=== PATIENT | male | born 1995 | race African-American/Black ===

== ENCOUNTER 2016-08-26 00:15 | Emergency (ER) | payer OTHER ==
[~2016-08-26] VITALS: Ht 180.3 cm; Wt 59.0 kg
[~2016-08-26 00:15] MED LIST: INSU100V SQ; NOVORP2 SQ
[2016-08-26 00:20] VITALS: BP 123/87; PULSE 80; RESP 16; TEMP 97.7; O2SAT 100
[2016-08-26] MEDS ORDERED: SODIUM CHLOR 0.9% 1000 ML INJ 1,000 ML IV ONE ×2 (02:04→02:34)
--- NOTE | 2016-08-26 02:09 | PD ---
HPI Chief Complaint: GI Complaint Time Seen by Provider: 02:04 Travel History International Travel<30 days: No Contact w/Intl Traveler<30days: No Traveled to known affect area: No History of Present Illness HPI Patient is a 21-year-old male presents emergency department for evaluation of nausea vomiting and shortness of breath. Patient states over the past few days he's noticed been gradually getting sicker and tolerating last by mouth. Patient states he had a couple of TV dinners tonight after work and could not tolerate them and decided to come in and be seen. He is also noticed spikes in his blood sugars in excess of 600. Patient states he does have a history of DKA but it was a long time ago and he doesn't remember what it was like. He denies any abdominal pain but does endorse some mild shortness of breath. Nonbloody and non-bilious emesis and no diarrhea. No fevers. PFSH Past Medical History Autoimmune Disease: No Anxiety: No Depression: No Cancer: No Cardiovascular Problems: No Chest Pain: Yes Diabetes: Yes Diminished Hearing: No Endocrine: No Gastrointestinal Disorders: Yes Genitourinary: No Headaches: Yes Immune Disorder: No Musculoskeletal: No Neurologic: No Psychiatric: No Reproductive: No Respiratory: No Sickle Cell Disease: No Thyroid Disease: No Past Surgical History Appendectomy: No Cholecystectomy: No Social History Alcohol Use: No Tobacco Use: No Substance Use: No Allergies-Medications (Allergen,Severity, Reaction): Coded Allergies: No Known Allergies (Verified , 08/26/16) Reported Meds & Prescriptions Reported Meds & Active Scripts Active Zofran Odt (Ondansetron Odt) 4 Mg Tab 4 Mg SL Q6HR PRN Reported Novolin R Inj (Insulin Human Regular) 1,000 Unit/10 Ml Vial 0 SQ DIRECTED Sliding Scale As Directed. Lantus Inj (Insulin Glargine) 1,000 Unit/10 Ml Vial 34 Units SQ AC BREAKFAST Lantus Inj (Insulin Glargine) 1,000 Unit/10 Ml Vial 36 Units SQ HS Review of Systems Except as stated in HPI: all other systems reviewed are Neg Physical Exam Narrative GENERAL: Well-developed, thin in no apparent distress. SKIN: Focused skin assessment warm/dry. HEAD: Atraumatic. Normocephalic. EYES: Pupils equal and round. No scleral icterus. No injection or drainage. ENT: No nasal bleeding or discharge. Mucous membranes pink and dry. NECK: Trachea midline. No JVD. CARDIOVASCULAR: Regular rate and rhythm. No murmur appreciated. RESPIRATORY: No accessory muscle use. Clear to auscultation. Breath sounds equal bilaterally. GASTROINTESTINAL: Abdomen soft, non-tender, nondistended. Hepatic and splenic margins not palpable. MUSCULOSKELETAL: No obvious deformities. No clubbing. No cyanosis. No edema. NEUROLOGICAL: Awake and alert. No obvious cranial nerve deficits. Motor grossly within normal limits. Normal speech. PSYCHIATRIC: Appropriate mood and affect; insight and judgment normal. Data Data Last Documented VS Vital Signs Date Time Temp Pulse Resp B/P Pulse Ox O2 Delivery O2 Flow Rate FiO2 08/26/16 02:57 18 99 Room Air 08/26/16 00:20 97.7 80 123/87 Orders Complete Blood Count With Diff (08/26/16 02:04) Comprehensive Metabolic Panel (08/26/16 02:04) Magnesium (Mg) (08/26/16 02:04) Phosphorus (Po4) (08/26/16 02:04) Beta Hydroxybutyrate (Acetone) (08/26/16 02:04) Chest, Single Ap (08/26/16 02:04) Ecg Monitoring (08/26/16 02:04) Iv Access Insert/Monitor (08/26/16 02:04) Oximetry (08/26/16 02:04) NPO (08/26/16 02:04) Sodium Chlor 0.9% 1000 Ml Inj (Ns 1000 M (08/26/16 02:04) Sodium Chlor 0.9% 1000 Ml Inj (Ns 1000 M (08/26/16 02:34) Sodium Chloride 0.9% Flush (Ns Flush) (08/26/16 02:15) Ondansetron Odt (Zofran Odt) (08/26/16 02:15) Labs Laboratory Tests Test 08/26/16 02:45 White Blood Count 8.1 TH/MM3 Red Blood Count 5.42 MIL/MM3 Hemoglobin 13.0 GM/DL Hematocrit 39.6 % Mean Corpuscular Volume 73.1 FL Mean Corpuscular Hemoglobin 24.0 PG Mean Corpuscular Hemoglobin 32.9 % Concent Red Cell Distribution Width 15.8 % Platelet Count 256 TH/MM3 Mean Platelet Volume 8.2 FL Neutrophils (%) (Auto) 83.5 % Lymphocytes (%) (Auto) 11.3 % Monocytes (%) (Auto) 4.3 % Eosinophils (%) (Auto) 0.5 % Basophils (%) (Auto) 0.4 % Neutrophils # (Auto) 6.8 TH/MM3 Lymphocytes # (Auto) 0.9 TH/MM3 Monocytes # (Auto) 0.3 TH/MM3 Eosinophils # (Auto) 0.0 TH/MM3 Basophils # (Auto) 0.0 TH/MM3 CBC Comment DIFF FINAL Differential Comment Sodium Level 134 MEQ/L Potassium Level 3.7 MEQ/L Chloride Level 95 MEQ/L Carbon Dioxide Level 27.1 MEQ/L Anion Gap 12 MEQ/L Blood Urea Nitrogen 14 MG/DL Creatinine 0.99 MG/DL Estimat Glomerular Filtration 114 ML/MIN Rate Random Glucose 307 MG/DL Calcium Level 9.3 MG/DL Phosphorus Level 3.1 MG/DL Magnesium Level 2.2 MG/DL Total Bilirubin 1.0 MG/DL Aspartate Amino Transf 16 U/L (AST/SGOT) Alanine Aminotransferase 28 U/L (ALT/SGPT) Alkaline Phosphatase 104 U/L Total Protein 7.6 GM/DL Albumin 4.3 GM/DL B-Hydroxybutyrate 2.66 MMOL/L MDM Medical Decision Making Medical Screen Exam Complete: Yes Emergency Medical Condition: Yes Differential Diagnosis DKA, dehydration, gastroenteritis, nausea, vomiting, acute abdomen unlikely. Narrative Course Patient roomed in the emergency department, given 2 L normal saline and Zofran and felt much better. His labs show minimal ketosis without acidosis. No evidence of DKA. Otherwise his labs are reassuring. Chest x-ray was obtained for his mild shortness of breath symptoms is negative. On reassessment the patient states he is feeling much better like to go home. Discussed symptomatic management home sugar control and need for follow-up the primary care physician and return to ED criteria. Diagnosis Primary Impression: Nausea & vomiting Qualified Code: R11.2 - Non-intractable vomiting with nausea, unspecified vomiting type Med/Other Pt SpecificInfo: Prescription(s) given Scripts Ondansetron Odt (Zofran Odt)4 Mg Tab4 Mg SL Q6HR PRN (Nausea/Vomiting) #30 TAB Ref 0 Prov:Colt Coronel MD 08/26/16 Disposition: 01 DISCHARGE HOME Condition: Stable Colt Coronel MD August 26, 2016 02:09
[2016-08-26] MEDS ORDERED: SODIUM CHLORIDE 0.9% FLUSH 10 ML FLUSH IVF PRN (02:15)
[2016-08-26] MEDS ORDERED: ONDANSETRON ODT 4 MG TAB PO ONE (02:15)
[2016-08-26] MEDS ORDERED: NOVORP2 SQ (02:39)
[2016-08-26] MEDS ORDERED: LANTUS2P SQ ×2 (02:39)
--- NOTE | 2016-08-26 02:56 | RADRPT ---
EXAM DATE/TIME: 08/26/2016 02:08 [facility] COMPARISON: No previous studies available for comparison. INDICATIONS : Vomiting, nausea, short of breath, diabetic. MEDICAL HISTORY : Diabetes mellitus type I. SURGICAL HISTORY : None. ENCOUNTER: Initial ACUITY: 1 day PAIN SCORE: 7/10 LOCATION: Bilateral chest FINDINGS: A single view of the chest demonstrates the lungs to be symmetrically aerated without evidence of mas s, infiltrate or effusion. The cardiomediastinal contours are unremarkable. Osseous structures are intact. CONCLUSION: No acute disease. Castro Johnson MD on August 26, 2016 at 2:55 Board Certified Radiologist. This report was verified electronically.
[2016-08-26 02:57] VITALS: RESP 18; O2SAT 99
[2016-08-26 03:19] LABS: AUTOMATED NEUTROPHIL # 6.8 TH/MM3 (1.8-7.7); BASOPHIL % 0.4 % (0.0-2.0); EOSINOPHIL % 0.5 % (0.0-4.0); HEMATOCRIT 39.6 % (39.0-51.0); HEMO FLAGS DIFF FINAL; LYMPH % 11.3 % (9.0-44.0); LYMPHOCYTE # 0.9 TH/MM3 (1.0-4.8); MEAN CELL VOLUME 73.1 FL (80.0-100.0); MEAN CORPUSCULAR HGB CONC 32.9 % (32.0-36.0); MONO % 4.3 % (0.0-8.0); NEUT % 83.5 % (16.0-70.0); PLATELET COUNT 256 TH/MM3 (150-450); RED BLOOD COUNT 5.42 MIL/MM3 (4.50-5.90); RED CELL DISTRIBUTION WIDTH 15.8 % (11.6-17.2); WHITE BLOOD COUNT 8.1 TH/MM3 (4.0-11.0)
[2016-08-26 03:30] LABS: ALT (GPT) 28 U/L (12-78); ANION GAP 12 MEQ/L (5-15); AST (GOT) 16 U/L (15-37); BICARBONATE 27.1 MEQ/L (21.0-32.0); BLOOD UREA NITROGEN 14 MG/DL (7-18); CHLORIDE 95 MEQ/L (98-107); GLOMERULAR FILTRATION RATE 114 ML/MIN (>89); MAGNESIUM 2.2 MG/DL (1.5-2.5); POTASSIUM 3.7 MEQ/L (3.5-5.1); SODIUM (NA) 134 MEQ/L (136-145)
[2016-08-26 03:32] LABS: ALKALINE PHOSPHATASE 104 U/L (45-117); BETA-HYDROXYBUTYRATE 2.66 MMOL/L (0.00-0.39)
[2016-08-26] MEDS ORDERED: ZOFR4TAB3 SL (04:13)
== END 2016-08-26 05:19 | disposition home or self-care (01) ==
LOC: NEPE 00:15
DX: R11.2 Nausea with vomiting, unspecified (principal); E11.9 Type 2 diabetes mellitus without complications; Z79.4 Long term (current) use of insulin
CPT/HCPCS: 71010; 80053; 82010; 83735; 84100; 85025; 99285; J7030

== ENCOUNTER 2016-09-06 17:30 | Inpatient (IN) | payer OTHER ==
[~2016-09-06] VITALS: Ht 170.2 cm; Wt 56.3 kg
[~2016-09-06 17:30] MED LIST changes: -INSU100V SQ; +LANTUS2P SQ; +ZOFR4TAB3 SL
[2016-09-06 17:34] VITALS: BP 168/89; PULSE 101; RESP 21; TEMP 98.2; O2SAT 99
--- NOTE | 2016-09-06 17:48 | PD ---
Physical Exam Date Seen by Provider: September 06, 2016 Time Seen by Provider: 17:46 Narrative 21 yo male here for abdominal pain. History of diabetes. No chest pain. Pain started this morning. States his pain is 10/10. No injuries. Started all of the sudden. Some nausea. Pain is all throughout. Patient is a poor historian. Vitals sign stable. Patient awaiting bed placement. Data Data Last Documented VS Vital Signs Date Time Temp Pulse Resp B/P Pulse Ox O2 Delivery O2 Flow Rate FiO2 09/06/16 17:34 98.2 101 21 168/89 99 MDM Medical Record Reviewed: Yes Supervised Visit with JUAN: No Emmett Andrews September 06, 2016 17:48
[2016-09-06] MEDS ORDERED: SODIUM CHLOR 0.9% 1000 ML INJ 1,000 ML IV SCH (18:15)
[2016-09-06] MEDS ORDERED: SODIUM CHLORIDE 0.9% FLUSH 10 ML FLUSH IV FLUSH PRN (18:15)
[2016-09-06] MEDS ORDERED: ONDANSETRON HCL 4 MG/2 ML VIAL IVP ONE (18:15)
--- NOTE | 2016-09-06 18:18 | PD ---
HPI Chief Complaint: Abdominal Pain Time Seen by Provider: 18:16 Travel History International Travel<30 days: No Contact w/Intl Traveler<30days: No Traveled to known affect area: No History of Present Illness HPI Patient comes in for evaluation of generalized abdominal pain and reports that approximately 2 hours ago. Patient states that he was just sitting there watching TV when the pain started. Patient describes pain as "it just hurts "throughout his abdomen without radiation. Patient reports he did vomit one time and it was nonbloody and nonbilious. Denies any fevers, chest pain, shortness of breath, loss change in bowel or bladder, or doing anything for this prior coming to the emergency department. Patient reports his of blood sugars have been running well on his current medication. PFSH Past Medical History Autoimmune Disease: No Anxiety: No Depression: No Cancer: No Cardiovascular Problems: No Chest Pain: Yes Diabetes: Yes Patient Takes Glucophage: No Diminished Hearing: No Endocrine: No Gastrointestinal Disorders: Yes Genitourinary: No Headaches: Yes Immune Disorder: No Musculoskeletal: No Neurologic: No Psychiatric: No Reproductive: No Respiratory: No Sickle Cell Disease: No Thyroid Disease: No Past Surgical History Surgical History: No Previous Surgery Appendectomy: No Cholecystectomy: No Other Surgery: No Social History Alcohol Use: No Tobacco Use: Yes (3 cigs/day) Substance Use: No Allergies-Medications (Allergen,Severity, Reaction): Coded Allergies: Vancomycin (Verified Allergy, Unknown, Hives, 09/06/16) Reported Meds & Prescriptions Reported Meds & Active Scripts Active Zofran Odt (Ondansetron Odt) 4 Mg Tab 4 Mg SL Q6HR PRN Reported Novolin R Inj (Insulin Human Regular) 1,000 Unit/10 Ml Vial 0 SQ DIRECTED Sliding Scale As Directed. Lantus Inj (Insulin Glargine) 1,000 Unit/10 Ml Vial 34 Units SQ AC BREAKFAST Lantus Inj (Insulin Glargine) 1,000 Unit/10 Ml Vial 36 Units SQ HS Review of Systems Except as stated in HPI: all other systems reviewed are Neg Physical Exam Narrative GENERAL: Well-developed, well nourished, in no acute distress, and non-ill appearing. SKIN: Focused skin assessment warm and dry. HEAD: Atraumatic. Normocephalic. EYES: Pupils equal and round. EOMI. No scleral icterus. No injection or drainage. ENT: No nasal bleeding or discharge. Mucous membranes pink and moist. NECK: Trachea midline. No JVD. Supple. No nuclear rigidity. CARDIOVASCULAR: Regular rate and rhythm. No murmur appreciated. RESPIRATORY: No accessory muscle use. No respiratory distress. Clear to auscultation. Breath sounds equal bilaterally. GASTROINTESTINAL: Abdomen soft, non-tender, nondistended. Hepatic and splenic margins not palpable. Normal bowel sounds 4. No pulsatile mass. MUSCULOSKELETAL: No obvious deformities. No clubbing. No cyanosis. No edema. Full range of motion. NEUROLOGICAL: Awake and alert. No obvious cranial nerve deficits. Motor grossly within normal limits. Normal speech. PSYCHIATRIC: Appropriate mood and affect; insight and judgment normal. Data Data Last Documented VS Vital Signs Date Time Temp Pulse Resp B/P Pulse Ox O2 Delivery O2 Flow Rate FiO2 09/06/16 21:26 91 18 114/71 94 Room Air 09/06/16 17:34 98.2 Orders Complete Blood Count With Diff (09/06/16 18:15) Comprehensive Metabolic Panel (09/06/16 18:15) Lipase (09/06/16 18:15) Iv Access Insert/Monitor (09/06/16 18:15) Ecg Monitoring (09/06/16 18:15) Oximetry (09/06/16 18:15) Ondansetron Inj (Zofran Inj) (09/06/16 18:15) Sodium Chlor 0.9% 1000 Ml Inj (Ns 1000 M (09/06/16 18:15) Sodium Chloride 0.9% Flush (Ns Flush) (09/06/16 18:15) Beta Hydroxybutyrate (Acetone) (09/06/16 18:15) Urinalysis - C+S If Indicated (09/06/16 19:10) Abdomen, Flat & Upright (09/06/16 ) Chest, Single Ap (09/06/16 19:10) Drug Screen, Random Urine (09/06/16 19:10) Lactic Acid (09/06/16 19:13) Prothrombin Time / Inr (Pt) (09/06/16 19:36) Act Partial Throm Time (Ptt) (09/06/16 19:36) Magnesium (Mg) (09/06/16 19:36) Blood Culture (09/06/16 19:36) Ct Abd/Pel W/O Iv Contrast (09/06/16 19:36) Sodium Chlor 0.9% 1000 Ml Inj (Ns 1000 M (09/06/16 19:45) Vancomycin Inj (Vancomycin Inj) (09/06/16 19:41) Piperacil-Tazo 4.5 Gm Premix (Zosyn 4.5 (09/06/16 19:41) Oral Contrast - Adult (09/06/16 19:56) Morphine Inj (Morphine Inj) (09/06/16 20:30) Diatrizoate Liq ( Gastroview Liq) (09/06/16 21:28) Insulin Human Regular Inj (Novolin R Inj (09/06/16 22:00) Diphenhydramine Inj (Benadryl Inj) (09/06/16 22:00) Admit Order (Ed Use Only) (09/06/16 22:37) Labs Laboratory Tests Test 09/06/16 09/06/16 09/06/16 09/06/16 18:25 20:20 21:20 21:25 White Blood Count 21.2 TH/MM3 Red Blood Count 6.51 MIL/MM3 Hemoglobin 15.7 GM/DL Hematocrit 49.2 % Mean Corpuscular Volume 75.5 FL Mean Corpuscular Hemoglobin 24.1 PG Mean Corpuscular Hemoglobin 31.8 % Concent Red Cell Distribution Width 16.2 % Platelet Count 270 TH/MM3 Mean Platelet Volume 8.7 FL Neutrophils (%) (Auto) 71.1 % Lymphocytes (%) (Auto) 20.1 % Monocytes (%) (Auto) 7.3 % Eosinophils (%) (Auto) 1.1 % Basophils (%) (Auto) 0.4 % Neutrophils # (Auto) 15.1 TH/MM3 Lymphocytes # (Auto) 4.3 TH/MM3 Monocytes # (Auto) 1.5 TH/MM3 Eosinophils # (Auto) 0.2 TH/MM3 Basophils # (Auto) 0.1 TH/MM3 CBC Comment DIFF FINAL Differential Comment Sodium Level 134 MEQ/L Potassium Level 4.4 MEQ/L Chloride Level 95 MEQ/L Carbon Dioxide Level 23.8 MEQ/L Anion Gap 15 MEQ/L Blood Urea Nitrogen 25 MG/DL Creatinine 2.05 MG/DL Estimat Glomerular Filtration 49 ML/MIN Rate Random Glucose 285 MG/DL Calcium Level 11.5 MG/DL Total Bilirubin 1.0 MG/DL Aspartate Amino Transf 49 U/L (AST/SGOT) Alanine Aminotransferase 46 U/L (ALT/SGPT) Alkaline Phosphatase 132 U/L Total Protein 9.5 GM/DL Albumin 5.1 GM/DL Lipase 102 U/L B-Hydroxybutyrate 0.28 MMOL/L Prothrombin Time 10.1 SEC Prothromb Time International 0.9 RATIO Ratio Activated Partial 18.9 SEC Thromboplast Time Lactic Acid Level 3.3 mmol/L Urine Color YELLOW Urine Turbidity CLEAR Urine pH 5.0 Urine Specific Dows 1.015 Urine Protein NEG mg/dL Urine Glucose (UA) 1000 mg/dL Urine Ketones TRACE mg/dL Urine Occult Blood NEG Urine Nitrite NEG Urine Bilirubin NEG Urine Urobilinogen LESS THAN 2.0 MG/DL Urine Leukocyte Esterase NEG Urine RBC LESS THAN 1 /hpf Urine WBC 2 /hpf Urine Squamous Epithelial <1 /hpf Cells Urine Hyaline Casts 26 /lpf Urine Mucus FEW /lpf Microscopic Urinalysis Comment CULT NOT INDICATED Urine Opiates Screen NEG Urine Barbiturates Screen NEG Urine Amphetamines Screen NEG Urine Benzodiazepines Screen NEG Urine Cocaine Screen NEG Urine Cannabinoids Screen POS Magnesium Level 2.8 MG/DL MDM Medical Decision Making Medical Screen Exam Complete: Yes Emergency Medical Condition: Yes Interpretation(s) Chest x-ray read by the radiologist shows: Gas distended stomach. Otherwise, unremarkable exam. Abdominal x-ray read by the radiologist shows: Normal exam. Differential Diagnosis Electrolyte abnormality, pancreatitis, ileus, gastritis, appendicitis, UTI, DKA , other Narrative Course 1999 patient is reassessed found resting comfortably in bed acute distress. Reports improvement of symptoms status post IV fluid and Zofran. Discussed abnormal laboratory finds with patient need for admission. Patient is reluctantly agreeable to this. 2149 patient reassessed continues to report improvement of symptoms. Patient was questioned if he has distally has to stay. Explained patient the importance of staying secondary to the acute renal insufficiency along with the leukocytosis. Patient does meet sepsis criteria. Patient verbalizes understanding of this is still willing to stay at this time. Patient's blood sugar is reported to be 313 by RN patient states he would normally take 4- 5 units of Novolin R at this level of blood glucose. Patient seen and examined. Initial laboratory studies were ordered and reviewed. IV was established, patient placed on monitoring analyst, patient was given IV fluids and IV Zofran. Upon reevaluation of abnormal lab findings additional studies were ordered along with patient started on IV antibiotics. I discussed patient with Dr. Fiore who recommends having patient admitted and she will follow-up on the CT scan report to physician any abnormal findings. Sepsis Criteria SIRS Criteria (2 or more): Heart rate over 90, WBC > 91738, < 4000 or > 10% bands Sepsis Criteria (SIRS+source): Infect source susp/known Severe Sepsis (+one): Organ Dysfunction, Lactate >2, Acute Oliguria/Renal Failure Physician Communication Physician Communication [id number] discussed patient with Ryland Mireles PA-C for Dr. Hammond, is agreeable to admit the patient. Diagnosis Primary Impression: Sepsis Qualified Code: A41.9 - Sepsis, due to unspecified organism Additional Impressions: Acute renal insufficiency Dehydration Admitting Information Admitting Physician Requests: Admit Condition: Stable Rajat Alavres September 06, 2016 18:18
[2016-09-06 18:58] LABS: AUTOMATED NEUTROPHIL # 15.1 TH/MM3 (1.8-7.7); BASOPHIL # 0.1 TH/MM3 (0-0.2); BASOPHIL % 0.4 % (0.0-2.0); EOSINOPHIL # 0.2 TH/MM3 (0-0.4); EOSINOPHIL % 1.1 % (0.0-4.0); HEMATOCRIT 49.2 % (39.0-51.0); HEMO FLAGS DIFF FINAL; LYMPH % 20.1 % (9.0-44.0); LYMPHOCYTE # 4.3 TH/MM3 (1.0-4.8); MEAN CELL VOLUME 75.5 FL (80.0-100.0); MEAN CORPUSCULAR HEMOGLOBIN 24.1 PG (27.0-34.0); MEAN CORPUSCULAR HGB CONC 31.8 % (32.0-36.0); MONO % 7.3 % (0.0-8.0); NEUT % 71.1 % (16.0-70.0); PLATELET COUNT 270 TH/MM3 (150-450); RED BLOOD COUNT 6.51 MIL/MM3 (4.50-5.90); RED CELL DISTRIBUTION WIDTH 16.2 % (11.6-17.2); WHITE BLOOD COUNT 21.2 TH/MM3 (4.0-11.0)
[2016-09-06 19:10] LABS: ALT (GPT) 46 U/L (12-78); BETA-HYDROXYBUTYRATE 0.28 MMOL/L (0.00-0.39)
[2016-09-06 19:12] LABS: ALKALINE PHOSPHATASE 132 U/L (45-117)
[2016-09-06 19:18] LABS: ANION GAP 15 MEQ/L (5-15); AST (GOT) 49 U/L (15-37); BICARBONATE 23.8 MEQ/L (21.0-32.0); BLOOD UREA NITROGEN 25 MG/DL (7-18); CHLORIDE 95 MEQ/L (98-107); GLOMERULAR FILTRATION RATE 49 ML/MIN (>89); POTASSIUM 4.4 MEQ/L (3.5-5.1); SODIUM (NA) 134 MEQ/L (136-145)
[2016-09-06] MEDS ORDERED: VANCOMYCIN INJ 1,000 MG in SODIUM CHLOR 0.9% 250 ML INJ 250 ML IV STA (19:41)
[2016-09-06] MEDS ORDERED: PIPERACIL-TAZO 4.5 GM PREMIX 100 ML IV STA (19:41)
[2016-09-06] MEDS ORDERED: SODIUM CHLOR 0.9% 1000 ML INJ 1,000 ML IV ONE (19:45)
--- NOTE | 2016-09-06 20:05 | RADRPT ---
EXAM DATE/TIME: 09/06/2016 19:31 [facility] COMPARISON: CHEST SINGLE AP, August 26, 2016, 2:08. INDICATIONS : Chest pain, shortness of breath. MEDICAL HISTORY : Diabetes mellitus type II. SURGICAL HISTORY : None. ENCOUNTER: Initial ACUITY: 1 day PAIN SCORE: 10/10 LOCATION: chest midline. FINDINGS: A single view of the chest demonstrates the lungs to be symmetrically aerated without evidence of mas s, infiltrate or effusion. The cardiomediastinal contours are unremarkable. Osseous structures are intact. No free air below either hemidiaphragm. A gas distended stomach noted. CONCLUSION: 1. Gas distended stomach. Otherwise, unremarkable exam. Lm Gomez Jr., MD on September 06, 2016 at 20:03 Board Certified Radiologist. This report was verified electronically.
--- NOTE | 2016-09-06 20:06 | RADRPT ---
EXAM DATE/TIME: 09/06/2016 19:35 [facility] COMPARISON: No previous studies available for comparison. INDICATIONS : Nausea, vomiting, abdominal pain. MEDICAL HISTORY : Diabetes mellitus type II. SURGICAL HISTORY : None. ENCOUNTER: Initial ACUITY: 1 day PAIN SCORE: 10/10 LOCATION: abdomen, midline. FINDINGS: Supine and upright views of the abdomen were performed. The abdominal bowel gas pattern is normal. No air fluid levels are seen. No abnormal masses, calcifications, or organomegaly is seen. The visu alized lower lungs are clear. No evidence of free intraperitoneal gas. The osseous structures are u nremarkable. CONCLUSION: Normal examination. Lm Gomez Jr., MD on September 06, 2016 at 20:04 Board Certified Radiologist. This report was verified electronically.
[2016-09-06] MEDS ORDERED: MORPHINE SULFATE 4 MG/ML INJ IV PUSH ONE ×2 (20:30→23:15)
[2016-09-06 21:26] VITALS: BP 114/71; PULSE 91; RESP 18; O2SAT 94
[2016-09-06] MEDS ORDERED: DIATRIZOATE MEGLUM/DIATRIZOATE SOD 9 ML CUP ONE (21:28)
[2016-09-06 21:39] LABS: BLOOD, URINE NEG (NEG); COMMENT (UR) CULT NOT INDICATED; CULTURE IF INDICATED CULT NOT INDICATED; GLUCOSE,URINE 1000 mg/dL (NEG); HYALINE CAST, URINE 26 /lpf (RARE); KETONE, URINE TRACE mg/dL (NEG); MUCUS URINE FEW /lpf (OCC); NITRITE,URINE NEG (NEG); SQUAMOUS EPITHELIAL CELL URINE <1 /hpf (0-5); URINE COLOR YELLOW (YELLW/STRAW)
[2016-09-06 21:45] LABS: AMPHETAMINE, URINE NEG (NEG); BARBITURATES, URINE NEG (NEG); COCAINE, URINE NEG (NEG)
[2016-09-06 21:56] LABS: INTERNATIONAL NORMALIZED RATIO 0.9 RATIO; PROTHROMBIN TIME - PATIENT 10.1 SEC (9.8-11.6)
[2016-09-06] MEDS ORDERED: diphenhydrAMINE HCL 50 MG/ML VIAL IV PUSH ONE (22:00)
[2016-09-06] MEDS ORDERED: INSULIN HUMAN REGULAR 1,000 UNITS/10 ML VIAL SQ ONE (22:00)
[2016-09-06 22:02] LABS: APTT (PATIENT) 18.9 SEC (24.3-30.1)
[2016-09-06] MEDS ORDERED: ONDANSETRON HCL 4 MG/2 ML VIAL IV PUSH ONE (23:15)
[2016-09-07] VITALS (7 sets, daily range): BP systolic 120–134; BP diastolic 71–86; PULSE 63–98; RESP 15–18; TEMP 96.3–99.6; O2SAT 96–100
[2016-09-07] MEDS ORDERED: SENNOSIDES 8.6 MG TAB PO PRN (00:15)
[2016-09-07] MEDS ORDERED: LACTULOSE SYRUP 20 GM/30 ML CUP PO PRN (00:15)
[2016-09-07] MEDS ORDERED: NALOXONE HCL 0.4 MG/ML AMP IV PRN ×2 (00:15→00:30)
[2016-09-07] MEDS ORDERED: GLUCAGON 1 MG/ML VIAL OTHER PRN (00:15)
[2016-09-07] MEDS ORDERED: DEXTROSE 50% IN WATER 50 ML VIAL(D50) IV PRN (00:15)
[2016-09-07] MEDS ORDERED: ONDANSETRON HCL 4 MG/2 ML VIAL IVP PRN (00:15)
[2016-09-07] MEDS ORDERED: ACETAMINOPHEN 325 MG TAB PO PRN ×2 (00:15→00:30)
[2016-09-07] MEDS ORDERED: SODIUM CHLORIDE 0.9% FLUSH 10 ML FLUSH IV FLUSH PRN (00:15)
[2016-09-07] MEDS: SODIUM CHLOR 0.9% 1000 ML INJ 1,000 ML IV SCH ×3 (00:44→20:33)
[2016-09-07] MEDS: HEPARIN SODIUM - SQ 10,000 UNITS/ML VIAL SQ SCH ×3 (00:44→23:48)
--- NOTE | 2016-09-07 02:19 | PD ---
Data Data Last Documented VS Vital Signs Date Time Temp Pulse Resp B/P Pulse Ox O2 Delivery O2 Flow Rate FiO2 09/06/16 21:26 91 18 114/71 94 Room Air 09/06/16 17:34 98.2 Orders Complete Blood Count With Diff (09/06/16 18:15) Comprehensive Metabolic Panel (09/06/16 18:15) Lipase (09/06/16 18:15) Iv Access Insert/Monitor (09/06/16 18:15) Ecg Monitoring (09/06/16 18:15) Oximetry (09/06/16 18:15) Ondansetron Inj (Zofran Inj) (09/06/16 18:15) Sodium Chlor 0.9% 1000 Ml Inj (Ns 1000 M (09/06/16 18:15) Sodium Chloride 0.9% Flush (Ns Flush) (09/06/16 18:15) Beta Hydroxybutyrate (Acetone) (09/06/16 18:15) Urinalysis - C+S If Indicated (09/06/16 19:10) Abdomen, Flat & Upright (09/06/16 ) Chest, Single Ap (09/06/16 19:10) Drug Screen, Random Urine (09/06/16 19:10) Lactic Acid (09/06/16 19:13) Prothrombin Time / Inr (Pt) (09/06/16 19:36) Act Partial Throm Time (Ptt) (09/06/16 19:36) Magnesium (Mg) (09/06/16 19:36) Blood Culture (09/06/16 19:36) Ct Abd/Pel W/O Iv Contrast (09/06/16 19:36) Sodium Chlor 0.9% 1000 Ml Inj (Ns 1000 M (09/06/16 19:45) Vancomycin Inj (Vancomycin Inj) (09/06/16 19:41) Piperacil-Tazo 4.5 Gm Premix (Zosyn 4.5 (09/06/16 19:41) Oral Contrast - Adult (09/06/16 19:56) Morphine Inj (Morphine Inj) (09/06/16 20:30) Diatrizoate Liq ( Gastroview Liq) (09/06/16 21:28) Insulin Human Regular Inj (Novolin R Inj (09/06/16 22:00) Diphenhydramine Inj (Benadryl Inj) (09/06/16 22:00) Admit Order (Ed Use Only) (09/06/16 22:37) Labs Laboratory Tests Test 09/06/16 09/06/16 09/06/16 09/06/16 18:25 20:20 21:20 21:25 White Blood Count 21.2 TH/MM3 Red Blood Count 6.51 MIL/MM3 Hemoglobin 15.7 GM/DL Hematocrit 49.2 % Mean Corpuscular Volume 75.5 FL Mean Corpuscular Hemoglobin 24.1 PG Mean Corpuscular Hemoglobin 31.8 % Concent Red Cell Distribution Width 16.2 % Platelet Count 270 TH/MM3 Mean Platelet Volume 8.7 FL Neutrophils (%) (Auto) 71.1 % Lymphocytes (%) (Auto) 20.1 % Monocytes (%) (Auto) 7.3 % Eosinophils (%) (Auto) 1.1 % Basophils (%) (Auto) 0.4 % Neutrophils # (Auto) 15.1 TH/MM3 Lymphocytes # (Auto) 4.3 TH/MM3 Monocytes # (Auto) 1.5 TH/MM3 Eosinophils # (Auto) 0.2 TH/MM3 Basophils # (Auto) 0.1 TH/MM3 CBC Comment DIFF FINAL Differential Comment Sodium Level 134 MEQ/L Potassium Level 4.4 MEQ/L Chloride Level 95 MEQ/L Carbon Dioxide Level 23.8 MEQ/L Anion Gap 15 MEQ/L Blood Urea Nitrogen 25 MG/DL Creatinine 2.05 MG/DL Estimat Glomerular Filtration 49 ML/MIN Rate Random Glucose 285 MG/DL Calcium Level 11.5 MG/DL Total Bilirubin 1.0 MG/DL Aspartate Amino Transf 49 U/L (AST/SGOT) Alanine Aminotransferase 46 U/L (ALT/SGPT) Alkaline Phosphatase 132 U/L Total Protein 9.5 GM/DL Albumin 5.1 GM/DL Lipase 102 U/L B-Hydroxybutyrate 0.28 MMOL/L Prothrombin Time 10.1 SEC Prothromb Time International 0.9 RATIO Ratio Activated Partial 18.9 SEC Thromboplast Time Lactic Acid Level 3.3 mmol/L Urine Color YELLOW Urine Turbidity CLEAR Urine pH 5.0 Urine Specific [place] 1.015 Urine Protein NEG mg/dL Urine Glucose (UA) 1000 mg/dL Urine Ketones TRACE mg/dL Urine Occult Blood NEG Urine Nitrite NEG Urine Bilirubin NEG Urine Urobilinogen LESS THAN 2.0 MG/DL Urine Leukocyte Esterase NEG Urine RBC LESS THAN 1 /hpf Urine WBC 2 /hpf Urine Squamous Epithelial <1 /hpf Cells Urine Hyaline Casts 26 /lpf Urine Mucus FEW /lpf Microscopic Urinalysis Comment CULT NOT INDICATED Urine Opiates Screen NEG Urine Barbiturates Screen NEG Urine Amphetamines Screen NEG Urine Benzodiazepines Screen NEG Urine Cocaine Screen NEG Urine Cannabinoids Screen POS Magnesium Level 2.8 MG/DL [facility] Medical Record Reviewed: Yes Supervised Visit with JUAN: Yes Interpretation(s) Last Impressions Abdomen/Pelvis CT 09/06/16 1936 Signed Impressions: Service Date/Time: Tuesday, September 06, 2016 22:43 - CONCLUSION: Pneumobilia. If there has not been instrumentation of the biliary tree, this could relate to passage of a stone, bowel obstruction or cholangitis. Mild nonspecific fluid and gaseous distention of small bowel. Ryland Morales MD Chest X-Ray 09/06/16 1910 Signed Impressions: Service Date/Time: Tuesday, September 06, 2016 19:31 - CONCLUSION: 1. Gas distended stomach. Otherwise, unremarkable exam. Lm Gomez Jr., MD Abdomen X-Ray 09/06/16 0000 Signed Impressions: Service Date/Time: Tuesday, September 06, 2016 19:35 - CONCLUSION: Normal examination. Lm Gomez Jr., MD Narrative Course I, Dr. Fiore, have reviewed the advance practice practitioner's documentation and am in agreement, met with the patient face to face, made the diagnosis, and the medical decision making was done by me. The patient was initially evaluated by Rajat. Please see his complete history and physical. *My assessment and Findings: The patient is a 21-year-old male who presents to [facility] emergency Department with a history of abdominal pain, nausea with vomiting 1. The patient reports that the pain is a 10 out of 10 in severity, however his abdominal examination revealed mild midepigastric abdominal pain, no evidence of an acute abdomen. Workup ensued. The patient's electronic medical record was reviewed and the patient was seen in the emergency department on August 26 related to nausea and vomiting. The patient had laboratory studies and a CT scan of the abdomen and pelvis ordered. During the course of the patients emergency department visit, the patients history, examination, and differential diagnosis were reviewed with the patient. The patient had IV access obtained and blood work sent for analysis. The patient was initially provided normal saline 1 L IV fluid bolus, as Zofran 4 mg IV. The patient's white blood cell count came back elevated the patient was started on broad-spectrum antibiotics to include vancomycin 1 g IV, Zosyn IV. The patient was treated with an additional liter of normal saline IV fluids , morphine for pain. The patients laboratory studies were reviewed and remarkable for a white count of 21.2, hemoglobin 15.7, platelets 270 with 71.1 neutrophils, CMP is remarkable for a sodium of 134, chloride 95, BUN 25, creatinine 2.05 which is acute renal failure complained to previously, glucose 285, lactic acid 3.3, calcium 11.5, AST 49, alkaline phosphatase 132, lipase 102, PT 10.1, PTT 18.9, urinalysis is unremarkable except for 1000 glucose, beta hydroxybutyrate is 0.28 , urine drug screen is positive for cannabinoids. Radiology studies were reviewed and remarkable for a chest x-ray shows gas distended stomach otherwise unremarkable. Abdominal x-ray revealed a normal bowel gas pattern, no acute abnormality. CT scan of the abdomen and pelvis revealed pneumobilia which could be related to passage of a gallstone, versus bowel obstruction, versus cholangitis. The patient has mild nonspecific fluid and gaseous distention of the small bowel. The patient had a repeat lactic acid done that was 2.0. Ultrasound of the gallbladder has been ordered. The patients results were discussed with the patient, including the plan of care. I explained that further testing and/ or monitoring is indicated based on the patients history, examination, and/ or laboratory findings. Therefore, I recommended admission for additional evaluation. The patient expressed understanding and was agreeable with this plan. The patient was admitted to the hospital in guarded condition and sent to a bed under the care of the [facility]. Physician Communication Physician Communication I spoke to Ryland Mireles regarding the findings on the patient's CT scan of the abdomen and pelvis and the fact that I did order an ultrasound to further evaluate the patient's gallbladder. Admitting Information Admitting Physician Requests: Admit Shweta Fiore MD September 07, 2016 02:18
[2016-09-07] MEDS: MORPHINE SULFATE 4 MG/ML INJ IV PRN ×5 (03:47→23:51)
[2016-09-07] MEDS: PIPERACIL-TAZO 3.375 GM PREMIX 50 ML IV SCH ×4 (03:50→20:31)
[2016-09-07] MEDS: INSULIN NovoLIN REGULAR SUPPLEMENTAL SCALE SQ SCH ×4 (06:28→20:36)
--- NOTE | 2016-09-07 08:23 | RADRPT ---
EXAM DATE/TIME: 09/06/2016 22:43 [facility] COMPARISON: No previous studies available for comparison. INDICATIONS : Diffuse abdominal pain with nausea and vomitting. ORAL CONTRAST: Prescribed oral contrast ingested. RADIATION DOSE: 4.72 CTDIvol (mGy) MEDICAL HISTORY : None SURGICAL HISTORY : None. ENCOUNTER: Initial ACUITY: 1 day PAIN SCALE: 10/10 LOCATION: Bilateral abdomen TECHNIQUE: Volumetric scanning of the abdomen and pelvis was performed. Using automated exposure control and ad justment of the mA and/or kV according to patient size, radiation dose was kept as low as reasonably achievable to obtain optimal diagnostic quality images. FINDINGS: LOWER LUNGS: The visualized lower lungs are clear. LIVER: Pneumobilia is present. There is no evidence of focal liver mass. No ductal dilatation is noted. The gallbladder is unremarkable for CT appearance. SPLEEN: Normal size without lesion. PANCREAS: Within normal limits. KIDNEYS: Normal in size and shape. There is no mass, stone, or hydronephrosis. ADRENAL GLANDS: Within normal limits. VASCULAR: There is no aortic aneurysm. BOWEL/MESENTERY: Stomach is dilated. There is mild fluid in gaseous dilatation of small bowel. The colon is grossly no rmal in caliber with fluid and content throughout. ABDOMINAL WALL: Within normal limits. RETROPERITONEUM: There is no lymphadenopathy. BLADDER: No wall thickening or mass. REPRODUCTIVE: Within normal limits. INGUINAL: There is no lymphadenopathy or hernia. MUSCULOSKELETAL: Within normal limits for patient age. CONCLUSION: Pneumobilia. If there has not been instrumentation of the biliary tree, this could relate to passage of a stone, bowel obstruction or cholangitis. Mild nonspecific fluid and gaseous distention of small bowel. Ryland Morales MD on September 06, 2016 at 22:54 Board Certified Radiologist. This report was verified electronically.
--- NOTE | 2016-09-07 08:25 | RADRPT ---
EXAM DATE/TIME: 09/07/2016 00:04 [facility] COMPARISON: CT ABDOMEN & PELVIS W/O CONTRAST, September 06, 2016, 22:43. INDICATIONS : Right upper quadrant pain, nausea and vomiting. MEDICAL HISTORY : Headaches. Juvenile diabetes. SURGICAL HISTORY : None. ENCOUNTER: Initial ACUITY: 1 day PAIN SCORE: 9/10 LOCATION: Right upper quadrant MEASUREMENTS: LIVER: 13.7 cm length COMMON DUCT: 5 mm RIGHT KIDNEY: 10.1 x 5.6 x 4.7 cm FINDINGS: LIVER: Pneumobilia. No focal mass. COMMON DUCT: No intraluminal mass or stone visualized. GALLBLADDER: Contains no stones, demonstrates no wall thickening or pericholecystic fluid. PANCREAS: The visualized portions are within normal limits. RIGHT KIDNEY: No evidence of hydronephrosis, stone, or mass. CONCLUSION: Pneumobilia. Gallbladder is unremarkable. Ryland Morales MD on September 07, 2016 at 1:28 Board Certified Radiologist. This report was verified electronically.
[2016-09-07] MEDS: SODIUM CHLORIDE 0.9% FLUSH 10 ML FLUSH IV FLUSH SCH ×2 (08:31→20:35)
--- NOTE | 2016-09-07 08:53 | EKG ---
Date Performed: 09/07/2016 Time Performed: 03:01:47 PTAGE: 21 years EKG: Sinus rhythm NORMAL ECG PREVIOUS TRACING : 10/17/2006 17.32 DOCTOR: Randal Fan Interpretating Date/Time 09/07/2016 08:51:47
--- NOTE | 2016-09-07 11:54 | PD.CONS ---
HPI History of Present Illness This is a 21 year old man who presented to ER yeterday after eating at [employer] and experiencing gas, bloating, and feeling of "stomach thuan" and "tightening." He had sternal pain, normal EKG, and that pain would radiate downward and to the LUQ. He did vomit once in the ER, no blood. He also c/o burping with a foul taste and odor. CT abd and US GB showed pneumobilia. His WBC count on admission was 21.2. He was also found to have renal insufficiency with creatinine 2.5. (Deirdre Hernandez) PFSH Past Medical History none Past Surgical History none (Deirdre Hernandez) Coded Allergies: Vancomycin (Verified Allergy, Unknown, Hives, 09/06/16) Family History DM Social History denies ETOH smokes 3 x cigarettes daily denies illicit drugs but was + marijuana (Deirdre Hernandez) Review of Systems Constitutional: DENIES: Fever Eyes: DENIES: Blurred vision Ears, nose, mouth, throat: DENIES: Hearing loss Respiratory: DENIES: Cough Cardiovascular: DENIES: Chest pain Gastrointestinal: COMPLAINS OF: Abdominal pain, Nausea, Vomiting, DENIES: Black stools, Bloody stools, Constipation, Diarrhea, Hematemesis Genitourinary: DENIES: Hematuria Musculoskeletal: DENIES: Muscle aches Integumentary: DENIES: Rash Hematologic/lymphatic: DENIES: Bruising Neurologic: DENIES: Abnormal gait Psychiatric: DENIES: Confusion (Deirdre Hernandez) GI Exam Vitals I&O Vital Signs Date Time Temp Pulse Resp B/P Pulse Ox O2 Delivery O2 Flow Rate FiO2 09/07/16 10:48 18 09/07/16 08:00 96.3 75 16 121/84 97 09/07/16 05:30 97.8 86 16 123/86 96 09/07/16 01:30 97.0 98 18 134/84 96 09/06/16 21:26 91 18 114/71 94 Room Air 09/06/16 18:00 18 09/06/16 17:34 98.2 101 21 168/89 99 I/O 09/06/16 09/06/16 09/06/16 09/07/16 09/07/1609/07/17 06:59 14:59 22:59 06:59 14:59 22:59 Intake Total 656 ml Output Total 200 ml 1600 ml Balance -200 ml -944 ml Intake IV Total 656 ml Output Urine Total 1400 ml Emesis 200 ml 200 ml # Voids 2 Imaging Last Impressions Gall Bladder Ultrasound 09/06/16 2306 Signed Impressions: Service Date/Time: Wednesday, September 07, 2016 00:04 - CONCLUSION: Pneumobilia. Gallbladder is unremarkable. Ryland Morales MD Abdomen/Pelvis CT 09/06/16 1936 Signed Impressions: Service Date/Time: Tuesday, September 06, 2016 22:43 - CONCLUSION: Pneumobilia. If there has not been instrumentation of the biliary tree, this could relate to passage of a stone, bowel obstruction or cholangitis. Mild nonspecific fluid and gaseous distention of small bowel. Ryland Morales MD Chest X-Ray 09/06/16 1910 Signed Impressions: Service Date/Time: Tuesday, September 06, 2016 19:31 - CONCLUSION: 1. Gas distended stomach. Otherwise, unremarkable exam. Lm Gomez Jr., MD Abdomen X-Ray 09/06/16 0000 Signed Impressions: Service Date/Time: Tuesday, September 06, 2016 19:35 - CONCLUSION: Normal examination. Lm Gomez Jr., MD Laboratory Test 09/06/16 09/06/16 09/06/16 09/06/16 18:25 20:20 21:20 21:25 White Blood Count 21.2 TH/MM3 Red Blood Count 6.51 MIL/MM3 Hemoglobin 15.7 GM/DL Hematocrit 49.2 % Mean Corpuscular Volume 75.5 FL Mean Corpuscular Hemoglobin 24.1 PG Mean Corpuscular Hemoglobin 31.8 % Concent Red Cell Distribution Width 16.2 % Platelet Count 270 TH/MM3 Mean Platelet Volume 8.7 FL Neutrophils (%) (Auto) 71.1 % Lymphocytes (%) (Auto) 20.1 % Monocytes (%) (Auto) 7.3 % Eosinophils (%) (Auto) 1.1 % Basophils (%) (Auto) 0.4 % Neutrophils # (Auto) 15.1 TH/MM3 Lymphocytes # (Auto) 4.3 TH/MM3 Monocytes # (Auto) 1.5 TH/MM3 Eosinophils # (Auto) 0.2 TH/MM3 Basophils # (Auto) 0.1 TH/MM3 CBC Comment DIFF FINAL Differential Comment Sodium Level 134 MEQ/L Potassium Level 4.4 MEQ/L Chloride Level 95 MEQ/L Carbon Dioxide Level 23.8 MEQ/L Anion Gap 15 MEQ/L Blood Urea Nitrogen 25 MG/DL Creatinine 2.05 MG/DL Estimat Glomerular Filtration 49 ML/MIN Rate Random Glucose 285 MG/DL Calcium Level 11.5 MG/DL Total Bilirubin 1.0 MG/DL Aspartate Amino Transf 49 U/L (AST/SGOT) Alanine Aminotransferase 46 U/L (ALT/SGPT) Alkaline Phosphatase 132 U/L Total Protein 9.5 GM/DL Albumin 5.1 GM/DL Lipase 102 U/L B-Hydroxybutyrate 0.28 MMOL/L Prothrombin Time 10.1 SEC Prothromb Time International 0.9 RATIO Ratio Activated Partial 18.9 SEC Thromboplast Time Lactic Acid Level 3.3 mmol/L Urine Color YELLOW Urine Turbidity CLEAR Urine pH 5.0 Urine Specific [place] 1.015 Urine Protein NEG mg/dL Urine Glucose (UA) 1000 mg/dL Urine Ketones TRACE mg/dL Urine Occult Blood NEG Urine Nitrite NEG Urine Bilirubin NEG Urine Urobilinogen LESS THAN 2.0 MG/DL Urine Leukocyte Esterase NEG Urine RBC LESS THAN 1 /hpf Urine WBC 2 /hpf Urine Squamous Epithelial <1 /hpf Cells Urine Hyaline Casts 26 /lpf Urine Mucus FEW /lpf Microscopic Urinalysis Comment CULT NOT INDICATED Urine Opiates Screen NEG Urine Barbiturates Screen NEG Urine Amphetamines Screen NEG Urine Benzodiazepines Screen NEG Urine Cocaine Screen NEG Urine Cannabinoids Screen POS Magnesium Level 2.8 MG/DL Test 09/07/16 03:08 Lactic Acid Level 2.0 mmol/L Troponin I LESS THAN 0.02 NG/ML Date/Time Procedure Status Source Growth 09/06/16 20:25 Aerobic Blood Culture - Preliminary Resulted Blood Peripheral NO GROWTH IN 1 DAY 09/06/16 20:25 Anaerobic Blood Culture - Preliminary Resulted Blood Peripheral NO GROWTH IN 1 DAY Physical Examination HEENT: EOMI; normocephalic; atraumatic; no jaundice. CHEST: CTA CARDIAC: RRR ABDOMEN: Soft, nondistended, upper abdominal TTP; no hepatosplenomegaly; bowel sounds are present in all four quadrants. EXTREMITIES: No clubbing, cyanosis, or edema. SKIN: Normal; no rash; no jaundice. TECHNOLOGY LEAD: No focal deficits; alert and oriented times three. (Deirdre Hernandez) Assessment and Plan Plan ASSESSMENT - abdominal pain - with bloating, nausea. Complaint of sternal, epigastric, LUQ pain. EKG normal. Gall Bladder US 09/06/16 ---> Pneumobilia. Gallbladder is unremarkable. Abdomen/Pelvis CT 09/06/16 ---> Pneumobilia. If there has not been instrumentation of the biliary tree, this could relate to passage of a stone, bowel obstruction or cholangitis. Mild nonspecific fluid and gaseous distention of small bowel. Will get MRCP to evaluate further - elevated LFTs - mild. AST 49, ALT 46, ALP 132. - leukocytosis - WBC 21.2 PLAN - MRCP - EDWIGE - monitor labs - supportive care - further recommendations to follow based on results above This pt seen by myself and Dr Pagan and this note is written on his behalf ( Deirdre Hernandez) Physician Comments Seen and examined, plan as above, further recommendations to follow pending MRCP findings. (Donnie Pagan MD) Deirdre Hernandez September 07, 2016 11:54 Donnie Pagan MD September 07, 2016 14:12
--- NOTE | 2016-09-07 13:55 | HHI.PR ---
Objective Objective Results - Vital Signs Date Time Temp Pulse Resp B/P Pulse Ox O2 Delivery O2 Flow Rate FiO2 09/07/16 12:00 97.9 63 15 125/83 97 09/07/16 10:48 18 09/07/16 08:00 96.3 75 16 121/84 97 09/07/16 05:30 97.8 86 16 123/86 96 09/07/16 01:30 97.0 98 18 134/84 96 09/06/16 21:26 91 18 114/71 94 Room Air 09/06/16 18:00 18 09/06/16 17:34 98.2 101 21 168/89 99 I/O 09/06/16 09/06/16 09/06/16 09/07/16 09/07/16 09/07/16 07:00 15:00 23:00 07:00 15:00 23:00 Intake Total 656 ml Output Total 200 ml 1600 ml Balance -200 ml -944 ml Intake IV Total 656 ml Output Urine Total 1400 ml Emesis 200 ml 200 ml # Voids 2 Result Diagram: 09/06/16 1825 09/06/16 1825 Other Results Laboratory Tests Test 09/06/16 09/06/16 09/06/16 09/06/16 18:25 20:20 21:20 21:25 White Blood Count 21.2 Red Blood Count 6.51 Hemoglobin 15.7 Hematocrit 49.2 Mean Corpuscular Volume 75.5 Mean Corpuscular Hemoglobin 24.1 Mean Corpuscular Hemoglobin 31.8 Concent Red Cell Distribution Width 16.2 Platelet Count 270 Mean Platelet Volume 8.7 Neutrophils (%) (Auto) 71.1 Lymphocytes (%) (Auto) 20.1 Monocytes (%) (Auto) 7.3 Eosinophils (%) (Auto) 1.1 Basophils (%) (Auto) 0.4 Neutrophils # (Auto) 15.1 Lymphocytes # (Auto) 4.3 Monocytes # (Auto) 1.5 Eosinophils # (Auto) 0.2 Basophils # (Auto) 0.1 CBC Comment DIFF FINAL Differential Comment Sodium Level 134 Potassium Level 4.4 Chloride Level 95 Carbon Dioxide Level 23.8 Anion Gap 15 Blood Urea Nitrogen 25 Creatinine 2.05 Estimat Glomerular Filtration 49 Rate Random Glucose 285 Calcium Level 11.5 Total Bilirubin 1.0 Aspartate Amino Transf 49 (AST/SGOT) Alanine Aminotransferase 46 (ALT/SGPT) Alkaline Phosphatase 132 Total Protein 9.5 Albumin 5.1 Lipase 102 B-Hydroxybutyrate 0.28 Prothrombin Time 10.1 Prothromb Time International 0.9 Ratio Activated Partial 18.9 Thromboplast Time Lactic Acid Level 3.3 Urine Color YELLOW Urine Turbidity CLEAR Urine pH 5.0 Urine Specific [place] 1.015 Urine Protein NEG Urine Glucose (UA) 1000 Urine Ketones TRACE Urine Occult Blood NEG Urine Nitrite NEG Urine Bilirubin NEG Urine Urobilinogen LESS THAN 2.0 Urine Leukocyte Esterase NEG Urine RBC LESS THAN 1 Urine WBC 2 Urine Squamous Epithelial <1 Cells Urine Hyaline Casts 26 Urine Mucus FEW Microscopic Urinalysis Comment CULT NOT INDICATED Urine Opiates Screen NEG Urine Barbiturates Screen NEG Urine Amphetamines Screen NEG Urine Benzodiazepines Screen NEG Urine Cocaine Screen NEG Urine Cannabinoids Screen POS Magnesium Level 2.8 Test 09/07/16 03:08 Lactic Acid Level 2.0 Troponin I LESS THAN 0.02 Date/Time Procedure Status Source Growth 09/06/16 20:25 Aerobic Blood Culture - Preliminary Resulted Blood Peripheral NO GROWTH IN 1 DAY 09/06/16 20:25 Anaerobic Blood Culture - Preliminary Resulted Blood Peripheral NO GROWTH IN 1 DAY Physical Exam Physical Exam PHYSICAL EXAMINATION GENERAL: This is a well-developed, well-nourished male who appears to be in no acute distress. He is alert and awake, []. HEAD: Normocephalic without any lesion or mass noted. Facial features appear symmetric. EYES: Perrla, Normal eye movement, [] Icterus. [] Conj congestion. OROPHARYNGEAL: Oropharynx without erythema or edema. MOUTH/THROAT: Tongue midline []. Buccal mucosa is moist []. NECK: Supple. No nuchal rigidity or lymphadenopathy. Trachea midline without deviation. Thyroid not palpable, no bruits appreciated. CARDIAC: Regular rhythm, regular rate, S1 and S2 are heard. Murmur []; no gallops or rubs. LUNGS: Clear to auscultation bilaterally. [] wheeze, [] rhonchi or [] rale. No use of accessory muscles on inspiration or expiration. ABDOMEN: Soft, nontender, no organomegaly or masses. Bowel sounds are heard in all four quadrants. No rebound. No guarding. EXTREMITIES: [] edema. Pulses equal bilateral. [] cyanosis. NEUROLOGICAL: Patient mood and affect appropriate. Cranial nerves II through XII grossly intact. Muscle strength 5/5 in the upper and lower extremities bilaterally. Deep tendon reflexes are 2+ in the upper and lower extremities bilaterally. SKIN:Warm and moist PSYCH: Mood and affect appropriate A/P Assessment and Plan Patient seen and examined Please refer to admission H &P for details Abdominal pain, abnormal LFTs, pneumobilia on CT Appreciate GI input NPo MRCP PAin control follow up labs Leucocytosis, lactic acidosis, sepsis on admission Urine neg monitor cultures continue zosyn repeat labs OLGA likley sec to dehydration I/v fluids monitor creatinine Chest pain likely non cardiac troponins neg Tobacco abuse/ MArijuana abuse PLan of care discussed with patient, Isabella Damon MD September 07, 2016 13:55
--- NOTE | 2016-09-07 14:22 | MH ---
cc: MARIELLA GALVEZ MD DATE OF ADMISSION: 09/06/2016 DATE OF : 1995 CHIEF COMPLAINT Abdominal pain, acute onset. TRAVEL IN THE LAST 30 DAYS None. HISTORY OF PRESENT ILLNESS This is a pleasant 21-year-old diabetic male who has been in his usual state of health up until this past evening. The patient went to [email or web address] and ate his supper and stated that he was at home watching TV when he first noticed abdominal pain. He describes this pain has a generalized sensation that did radiate up into his epigastric region, but predominantly at this time is more in the left upper and left lower quadrant. The patient notes that he did have some nausea and vomiting, that he did not notice any blood or any bile. 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 He does keep his blood sugars under control and he is not on an insulin pump. The patient does go to school full-time and work a full-time job, stays very busy. He has not had any abdominal pain before this past evening. The patient did note some mild lightheadedness a couple of times during the daytime, but contributed it to be hot outside in the sun. The patient denies any chest pain, no shortness of breath, no headaches, no weight gain or weight loss recently. He voids freely. Denies any problems with bowel movements. Sugars have been under control to his knowledge. The patient was off from work yesterday but states that he did not do any activities that were out of the ordinary. PAST MEDICAL HISTORY 1. Insulin-dependent diabetes, probably type 1, since the age of 10. 2. GERD. 3. Occasional headaches. PAST SURGICAL HISTORY None. ALLERGIES VANCOMYCIN. MEDICATIONS Medications reported: Lantus and Novolin insulin. SOCIAL HISTORY The patient is single. 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 He does note minimal tobacco use of 3-5 cigarettes a day. No alcohol use. He is positive for marijuana use socially but not heavily. REVIEW OF SYSTEMS A 12-point review was done. Positives noted in the HPI which include his abdominal pain and some nausea and vomiting. Other systems are negative or unremarkable. PHYSICAL EXAMINATION VITAL SIGNS: Initially on admission temperature was 97, pulse 98, respirations 18, blood pressure 134/84, O2 sat 96. Currently vital signs are temperature 97.9, pulse 63, respirations 15, blood pressure 125/83, O2 sat 97. PHYSICAL EXAMINATION GENERAL: A thin, muscular, well-nourished black male who looks to be his stated age resting in the day. He is alert, oriented and cooperative. SKIN: [place] mucous membranes, warm and dry. HEENT: Atraumatic, normocephalic. ALIZE at 2 mm. Mucous membranes are pink and moist. NECK: Thin and supple. CARDIOVASCULAR: S1, S2. Regular rate and rhythm. No murmurs, rubs or gallops. LUNGS: Essentially clear anteriorly and posteriorly with no wheezes, rales or rhonchi. ABDOMEN: Taut, nontender, nondistended. Bowel sounds are very soft and hypoactive. MUSCULOSKELETAL: No edema. Moves extremities with purpose. No obvious deformities. NEUROLOGIC: He is alert, oriented, slightly anxious over his current condition. Tongue is midline. Speech is clear. 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 PSYCHIATRIC: Appropriate mood and affect. Insight and judgment normal. LABORATORY WBC count 21.2, RBC 6.51, hemoglobin 15.7, hematocrit 49.2, MCV 75.5, MCH 24.1, MCHC 31.8. Neutrophil percentage auto count is 71. INR is 0.9. Sodium 134, potassium 4.4, chloride 95, carbon dioxide 23.8, anion gap 15, BUN 25, creatinine 2.05, GFR 49, random glucose 285, lactic acid 3.3, calcium 11.5, magnesium 2.8, bilirubin 1, AST 49, ALT 46, alkaline phosphatase 132. Troponin is less than 0.02, total protein 9.5, albumin 5.1, lipase 102. Urine shows yellow clear urine, pH 5, specific gravity 0.015, negative protein, occult blood, nitrites, bilirubin and leukocyte esterase, trace ketones. Blood glucose is elevated. Toxicology is positive for cannabis, otherwise negative exam. B-hydroxybutyrate is 0.28. IMAGING Abdominal x-ray is normal. Chest x-ray has gas distention in the stomach, otherwise normal. Abdomen and pelvis CT shows pneumobilia. This could relate to passage of a stone, bowel obstruction or cholangitis, mild nonspecific fluid and gaseous distention of the small bowel. Gallbladder ultrasound shows an unremarkable gallbladder with pneumobilia. ASSESSMENT AND PLAN 1. Lactic acid sepsis with possible cholangitis. 2. Pneumobilia. 3. Acute renal insufficiency with dehydration and nausea and vomiting. 4. Leukocytosis secondary to sepsis. 5. Diabetes mellitus type 1 with hyperglycemia. 6. Hyponatremia, mild. 7. Mildly elevated LFTs, PLAN 1. Admit inpatient status. 2. Will monitor his vital signs q.4h. and as warranted. 3. 1800 calories ADA diet. 4. Activity will be out of bed with assistance. 5. Reconcile medications. 6. DVT prophylaxis with heparin. 7. PUD prophylaxis. 8. Reconcile any medications. 9. Monitor his Accu-Cheks a.c. and h.s. with sliding scale and his routine insulin. 10. Zosyn IV q.6h. 11. Pain management. 12. Lactulose p.r.n. for constipation. 13. GI has been consulted for their expert opinion and plan consists of MRI and MRCP. 14. Will monitor his labs in the morning and follow the course of treatment of his GI pain. Dictated by: ELLIS Syed MD NAHUN Conklin/CATHLEEN /1:15 PM /1:41 PM
[2016-09-07 14:57] LABS: HEMATOCRIT 36.3 % (39.0-51.0); MEAN CELL VOLUME 74.8 FL (80.0-100.0); MEAN CORPUSCULAR HEMOGLOBIN 24.3 PG (27.0-34.0); MEAN CORPUSCULAR HGB CONC 32.5 % (32.0-36.0); PLATELET COUNT 158 TH/MM3 (150-450); RED BLOOD COUNT 4.85 MIL/MM3 (4.50-5.90); RED CELL DISTRIBUTION WIDTH 15.8 % (11.6-17.2); REVIEW FLAG FINAL; WHITE BLOOD COUNT 6.8 TH/MM3 (4.0-11.0)
[2016-09-07 16:45] LABS: BICARBONATE 27.5 MEQ/L (21.0-32.0); POTASSIUM 3.7 MEQ/L (3.5-5.1)
--- NOTE | 2016-09-07 20:44 | RADRPT ---
EXAM DATE/TIME: 09/07/2016 19:21 [facility] COMPARISON: CT ABDOMEN & PELVIS W/O CONTRAST, September 06, 2016, 22:43. US ABDOMEN - GALLBLADDER, September 07, 2016, 0:04. INDICATIONS : Abdominal pain. MEDICAL HISTORY : Diabetes mellitus type 2. SURGICAL HISTORY : None. ENCOUNTER: Subsequent ACUITY: 2 day PAIN SCORE: 4/10 LOCATION: abdomen. TECHNIQUE: Multiplanar, multisequence magnetic resonance imaging of the abdomen was performed. High-resolution 3D dataset was utilized to reconstruct maximum-intensity projection (MIP) images. FINDINGS: INTRAHEPATIC BILE DUCTS: Within normal limits. No significant anatomical variant is present. Pneumobilia better appreciated on the prior CT. EXTRAHEPATIC BILE DUCTS: The common bile duct measures 3 mm. No stone or filling defect is identified. GALLBLADDER: No stones, wall thickening, or pericholecystic fluid. LIVER: Normal size and signal intensity. No concerning liver lesion is identified on this non-contrast exam. PANCREAS: The main pancreatic duct is normal in size. There is no significant anatomical variant. Signal inte nsity is within normal limits. No mass is visualized on this non-contrast exam. OTHER: The remaining visualized structures demonstrate no acute abnormality on this non-contrast exam. CONCLUSION: 1. Pneumobilia better appreciated on the prior CT. 2. No biliary dilatation or choledocholithiasis. Lm Gomez Jr., MD on September 07, 2016 at 20:37 Board Certified Radiologist. This report was verified electronically.
[2016-09-08] VITALS (7 sets, daily range): BP systolic 119–135; BP diastolic 81–87; PULSE 78–90; RESP 16; TEMP 97.2–98.7; O2SAT 95–100
[2016-09-08] MEDS: SODIUM CHLOR 0.9% 1000 ML INJ 1,000 ML IV SCH ×2 (03:59→16:11)
[2016-09-08] MEDS: PIPERACIL-TAZO 3.375 GM PREMIX 50 ML IV SCH ×4 (03:59→22:29)
[2016-09-08] MEDS: MORPHINE SULFATE 4 MG/ML INJ IV PRN ×5 (04:14→21:38)
[2016-09-08] MEDS: INSULIN NovoLIN REGULAR SUPPLEMENTAL SCALE SQ SCH ×4 (06:18→22:33)
[2016-09-08 07:29] LABS: AUTOMATED NEUTROPHIL # 5.2 TH/MM3 (1.8-7.7); BASOPHIL % 0.3 % (0.0-2.0); EOSINOPHIL # 0.1 TH/MM3 (0-0.4); HEMATOCRIT 35.6 % (39.0-51.0); HEMO FLAGS DIFF FINAL; LYMPH % 15.8 % (9.0-44.0); LYMPHOCYTE # 1.1 TH/MM3 (1.0-4.8); MEAN CORPUSCULAR HEMOGLOBIN 24.7 PG (27.0-34.0); MEAN CORPUSCULAR HGB CONC 33.8 % (32.0-36.0); MONO % 8.4 % (0.0-8.0); NEUT % 74.5 % (16.0-70.0); PLATELET COUNT 179 TH/MM3 (150-450); RED BLOOD COUNT 4.88 MIL/MM3 (4.50-5.90); RED CELL DISTRIBUTION WIDTH 15.6 % (11.6-17.2)
[2016-09-08 08:15] LABS: ALKALINE PHOSPHATASE 109 U/L (45-117); ALT (GPT) 205 U/L (12-78); ANION GAP 8 MEQ/L (5-15); AST (GOT) 297 U/L (15-37); BICARBONATE 26.4 MEQ/L (21.0-32.0); BLOOD UREA NITROGEN 7 MG/DL (7-18); CHLORIDE 101 MEQ/L (98-107); GLOMERULAR FILTRATION RATE 134 ML/MIN (>89); POTASSIUM 3.9 MEQ/L (3.5-5.1); SODIUM (NA) 135 MEQ/L (136-145); TOTAL BILIRUBIN ADULT 1.1 MG/DL (0.2-1.0)
[2016-09-08] MEDS: SODIUM CHLORIDE 0.9% FLUSH 10 ML FLUSH IV FLUSH SCH ×2 (08:36→21:00)
--- NOTE | 2016-09-08 11:17 | HHI.GIFU ---
Subjective Remarks Pt resting comfortably in bed, says his abdominal pain is improved after having a BM last night. He admits lower back pain. No n/v. Tolerating regular diet. (Deirdre Hernandez) Objective Vitals I&O Vital Signs Date Time Temp Pulse Resp B/P Pulse Ox O2 Delivery O2 Flow Rate FiO2 09/08/16 08:55 98 21 09/08/16 08:00 97.5 87 16 119/83 100 09/08/16 05:30 98.7 84 16 123/86 95 09/08/16 00:00 98.7 82 16 124/82 99 09/07/16 20:00 99.6 90 15 129/84 100 09/07/16 19:40 98 21 09/07/16 16:00 98.2 80 16 120/71 97 09/07/16 12:00 97.9 63 15 125/83 97 I/O 09/07/16 09/07/16 09/07/16 09/08/16 09/08/16 09/08/16 07:00 15:00 23:00 07:00 15:00 23:00 Intake Total 656 ml 1420 ml 720 ml Output Total 1600 ml 600 ml 650 ml Balance -944 ml 820 ml 720 ml -650 ml Intake Oral 720 ml 720 ml IV Total 656 ml 700 ml Output Urine Total 1400 ml 600 ml 650 ml Emesis 200 ml # Voids 2 Laboratory Laboratory Tests Test 09/07/16 09/08/16 14:48 07:11 White Blood Count 6.8 7.0 Red Blood Count 4.85 4.88 Hemoglobin 11.8 12.0 Hematocrit 36.3 35.6 Mean Corpuscular Volume 74.8 73.0 Mean Corpuscular Hemoglobin 24.3 24.7 Mean Corpuscular Hemoglobin 32.5 33.8 Concent Red Cell Distribution Width 15.8 15.6 Platelet Count 158 179 Mean Platelet Volume 7.4 7.9 Sodium Level 136 135 Potassium Level 3.7 3.9 Chloride Level 102 101 Carbon Dioxide Level 27.5 26.4 Anion Gap 7 8 Blood Urea Nitrogen 10 7 Creatinine 0.78 0.86 Estimat Glomerular Filtration 149 134 Rate Random Glucose 134 217 Calcium Level 8.6 8.6 Neutrophils (%) (Auto) 74.5 Lymphocytes (%) (Auto) 15.8 Monocytes (%) (Auto) 8.4 Eosinophils (%) (Auto) 1.0 Basophils (%) (Auto) 0.3 Neutrophils # (Auto) 5.2 Lymphocytes # (Auto) 1.1 Monocytes # (Auto) 0.6 Eosinophils # (Auto) 0.1 Basophils # (Auto) 0.0 CBC Comment DIFF FINAL Differential Comment Lactic Acid Level 1.1 Total Bilirubin 1.1 Aspartate Amino Transf 297 (AST/SGOT) Alanine Aminotransferase 205 (ALT/SGPT) Alkaline Phosphatase 109 Troponin I LESS THAN 0.02 Total Protein 6.6 Albumin 3.3 Date/Time Procedure Status Source Growth 09/06/16 20:25 Aerobic Blood Culture - Preliminary Resulted Blood Peripheral NO GROWTH IN 1 DAY 09/06/16 20:25 Anaerobic Blood Culture - Preliminary Resulted Blood Peripheral NO GROWTH IN 1 DAY Imaging Last Impressions Cholangiopancreatography MRI 09/07/16 0000 Signed Impressions: Service Date/Time: Wednesday, September 07, 2016 19:21 - CONCLUSION: 1. Pneumobilia better appreciated on the prior CT. 2. No biliary dilatation or choledocholithiasis. Lm Gomez Jr., MD Gall Bladder Ultrasound 09/06/16 2306 Signed Impressions: Service Date/Time: Wednesday, September 07, 2016 00:04 - CONCLUSION: Pneumobilia. Gallbladder is unremarkable. Ryland Morales MD Abdomen/Pelvis CT 09/06/16 1936 Signed Impressions: Service Date/Time: Tuesday, September 06, 2016 22:43 - CONCLUSION: Pneumobilia. If there has not been instrumentation of the biliary tree, this could relate to passage of a stone, bowel obstruction or cholangitis. Mild nonspecific fluid and gaseous distention of small bowel. Ryland Morales MD Chest X-Ray 09/06/16 1910 Signed Impressions: Service Date/Time: Tuesday, September 06, 2016 19:31 - CONCLUSION: 1. Gas distended stomach. Otherwise, unremarkable exam. Lm Gomez Jr., MD Abdomen X-Ray 09/06/16 0000 Signed Impressions: Service Date/Time: Tuesday, September 06, 2016 19:35 - CONCLUSION: Normal examination. Lm Gomez Jr., MD Physical Exam HEENT: EOMI; normocephalic; atraumatic; no jaundice. T CHEST: CTA CARDIAC: RRR ABDOMEN: Soft, nondistended, mild TTP epigastrum, LLQ; bowel sounds are present in all four quadrants. EXTREMITIES: No clubbing, cyanosis, or edema. SKIN: Normal; no rash; no jaundice. CAR SCRUBBER: No focal deficits; alert and oriented times three. (Deirdre Hernandez) Assessment and Plan Plan ASSESSMENT - abdominal pain - with bloating, nausea. Improved after BM last night. Complaint of sternal, epigastric, LUQ pain. EKG normal. Gall Bladder US 09/06/16 ---> Pneumobilia. Gallbladder is unremarkable. Abdomen/Pelvis CT 09/06/16 ---> Pneumobilia. If there has not been instrumentation of the biliary tree, this could relate to passage of a stone, bowel obstruction or cholangitis. Mild nonspecific fluid and gaseous distention of small bowel. MRCP neg for ductal dilatation, choledocholithiasis. - elevated LFTs - worsening, will do liver w/u - leukocytosis - WBC 21.2 PLAN - immunology, serology - EDWIGE - monitor labs - supportive care - further recommendations to follow based on results above This pt seen by myself and Dr Pagan and this note is written on his behalf ( Deirdre Hernandez) Physician Comments Seen and examined with Deirdre, plan as above, will check work up for viral and autoimmune markers, check Ceruloplasmin and to consider ruling out CMV and EBV . (Donnie Pagan MD) Deirdre Hernandez Sep 08, 2016 11:17 Donnie Pagan MD Sep 08, 2016 21:48
[2016-09-08 13:13] LABS: TRANSFERRIN IRON PROFILE 223 MG/DL (200-360)
[2016-09-08 13:16] LABS: FERRITIN 951 NG/ML (26-388)
[2016-09-08] MEDS: HEPARIN SODIUM - SQ 10,000 UNITS/ML VIAL SQ SCH (14:14)
--- NOTE | 2016-09-08 14:19 | HHI.PR ---
Subjective Remarks resting in bed alert, low back pain afebrile (Kaycee Lamas) Objective Objective Results - Vital Signs Date Time Temp Pulse Resp B/P Pulse Ox O2 Delivery O2 Flow Rate FiO2 09/08/16 12:00 98.1 90 16 120/81 98 09/08/16 08:55 98 21 09/08/16 08:00 97.5 87 16 119/83 100 09/08/16 05:30 98.7 84 16 123/86 95 09/08/16 00:00 98.7 82 16 124/82 99 09/07/16 20:00 99.6 90 15 129/84 100 09/07/16 19:40 98 21 09/07/16 16:00 98.2 80 16 120/71 97 I/O 09/07/16 09/07/16 09/07/16 09/08/16 09/08/16 09/08/16 07:00 15:00 23:00 07:00 15:00 23:00 Intake Total 656 ml 1420 ml 720 ml Output Total 1600 ml 600 ml 650 ml Balance -944 ml 820 ml 720 ml -650 ml Intake Oral 720 ml 720 ml IV Total 656 ml 700 ml Output Urine Total 1400 ml 600 ml 650 ml Emesis 200 ml # Voids 2 (Kaycee Lamas) Result Diagram: 09/08/16 0711 09/08/16 0711 Other Results Last Impressions Cholangiopancreatography MRI 09/07/16 0000 Signed Impressions: Service Date/Time: Wednesday, September 07, 2016 19:21 - CONCLUSION: 1. Pneumobilia better appreciated on the prior CT. 2. No biliary dilatation or choledocholithiasis. Lm Gomez Jr., MD Gall Bladder Ultrasound 09/06/16 2306 Signed Impressions: Service Date/Time: Wednesday, September 07, 2016 00:04 - CONCLUSION: Pneumobilia. Gallbladder is unremarkable. Ryland Morales MD Abdomen/Pelvis CT 09/06/16 1936 Signed Impressions: Service Date/Time: Tuesday, September 06, 2016 22:43 - CONCLUSION: Pneumobilia. If there has not been instrumentation of the biliary tree, this could relate to passage of a stone, bowel obstruction or cholangitis. Mild nonspecific fluid and gaseous distention of small bowel. Ryland Morales MD Chest X-Ray 09/06/16 1910 Signed Impressions: Service Date/Time: Tuesday, September 06, 2016 19:31 - CONCLUSION: 1. Gas distended stomach. Otherwise, unremarkable exam. Lm Gomez Jr., MD Abdomen X-Ray 09/06/16 0000 Signed Impressions: Service Date/Time: Tuesday, September 06, 2016 19:35 - CONCLUSION: Normal examination. Lm Gomez Jr., MD Medications and IVs Administered Medications Medications (Trade) Dose Ordered Sig/Ben Route PRN Reason Start Time Stop Time Status Last Admin Dose Admin Sodium Chloride (NS 1000 ml Inj) 1,000 ml @ 100 mls/hr Q10H IV 09/07/16 00:11 09/08/16 03:59 Sodium Chloride (NS Flush) 2 ml BID IV FLUSH 09/07/16 09:00 09/07/16 20:35 Heparin Sodium (Porcine) 5000 units 5,000 units Q12H SQ 09/07/16 01:00 09/08/16 14:14 Piperacillin Sod/ Tazobactam Sod (Zosyn 3.375 Gm Premix) 50 ml @ 100 mls/hr Q6H IV 09/07/16 03:00 09/08/16 14:13 Morphine Sulfate (Morphine Inj) 2 mg Q3H PRN IV Pain 3-5; if unable to take PO 09/07/16 00:30 09/08/16 04:14 Morphine Sulfate (Morphine Inj) 4 mg Q3H PRN IV Pain 6-10;if unable to take PO 09/07/16 00:30 09/08/16 14:14 (Kaycee Lamas) ROS General: Weakness GI: Abdominal Pain (when eating), BM (X 1 last pm), Other (fullness and pain after eating small amts) Neuro/MS: Other (anxiety) (Kaycee Lamas) Physical Exam Physical Exam PHYSICAL EXAMINATION GENERAL: This is a well-developed, well-nourished male who appears to be in mild distress. He is alert and awake HEAD: Normocephalic, atramatic Facial features appear symmetric. OROPHARYNGEAL: Oropharynx without erythema or edema. NECK: Supple. Trachea midline without deviation. CARDIAC: Regular rhythm, regular rate, S1 and S2 are heard. LUNGS: Clear to auscultation bilaterally air volumes normal range ABDOMEN: taut, generalized mild tenderness and especially LUQ and LLQ no organomegaly or masses. Bowel sounds soft EXTREMITIES: no edema. Pulses intact NEUROLOGICAL: Patient mood and affect appropriate.speech clear SKIN:Warm and moist Objective Remarks I feel like I have gas. (Kaycee Lamas) A/P Assessment and Plan 1. Lactic acid sepsis with possible cholangitis. 2. Pneumobilia. 3. Acute renal insufficiency with dehydration and nausea and vomiting. 4. Leukocytosis secondary to sepsis. 5. Diabetes mellitus type 1 with hyperglycemia. 6. Hyponatremia, mild. 7. Mildly elevated LFTs, PLAN vitals reviewed, normal trends , afebrile labs reviewed, leukocytosis resolved, hgb stable. no active bleeding suspected. cholangitis with abdominal pain - still has sysptoms of with bloating, nausea especiallt when eating. Normal BM last pm and felt some pressure relieved.. MRCP neg for ductal dilatation, choledocholithiasis, continue antibiotics for now Pneumobilia, GB unremarkable, appreciate GI consult for expert opinion. . Mild nonspecific fluid and gaseous distention of small bowel. labs shows elevated LFTs - more labs for liver workup. Labs and tests pending. Will continue to research source. labs in am pain management DM, 1: Monitor his Accu-Cheks a.c. and h.s. with sliding scale and his routine insulin. some mild elevated BS DVT prophylaxis with heparin. PUD prophylaxis. (Kaycee Lamas) Assessment and Plan patient seen and examined agree with above assessment and plan Liver work up in progress follow up LFTs continue Zosyn OLGA resolved continue current care discussed with patient discussed with Kaycee CORRAL (Isabella Hammond MD) Kaycee Lamas Sep 08, 2016 14:19 Isabella Hammond MD Sep 08, 2016 14:47
[2016-09-09] VITALS: BP 129/87; PULSE 92; RESP 18; TEMP 97.1; O2SAT 99
[2016-09-09] MEDS: MORPHINE SULFATE 4 MG/ML INJ IV PRN ×4 (01:14→12:43)
[2016-09-09] MEDS: HEPARIN SODIUM - SQ 10,000 UNITS/ML VIAL SQ SCH ×3 (01:14→23:48)
[2016-09-09] MEDS: SODIUM CHLOR 0.9% 1000 ML INJ 1,000 ML IV SCH ×2 (02:11→12:11)
[2016-09-09 04:00] VITALS: BP 118/83; PULSE 91; RESP 18; TEMP 98.5; O2SAT 99
[2016-09-09] MEDS: PIPERACIL-TAZO 3.375 GM PREMIX 50 ML IV SCH ×4 (04:30→21:00)
[2016-09-09 08:00] VITALS: BP 134/93; PULSE 74; RESP 18; TEMP 98.2; O2SAT 99
[2016-09-09 08:52] LABS: TOTAL BILIRUBIN ADULT 1.3 MG/DL (0.2-1.0)
[2016-09-09] MEDS: SODIUM CHLORIDE 0.9% FLUSH 10 ML FLUSH IV FLUSH SCH ×2 (09:00→21:00)
[2016-09-09] MEDS: INSULIN NovoLIN REGULAR SUPPLEMENTAL SCALE SQ SCH ×4 (09:03→21:00)
[2016-09-09 12:00] VITALS: BP 115/77; PULSE 85; RESP 18; TEMP 97.6; O2SAT 99
[2016-09-09 13:36] LABS: ANA SCREEN NEG (NEG)
[2016-09-09] MEDS ORDERED: MAGNESIUM HYDROXIDE SUSP 30 ML CUP PO PRN (13:45)
--- NOTE | 2016-09-09 13:49 | HHI.PR ---
Subjective Subjective Remarks mod. abd. pain, LLQ no bm x 2 days some back pain "I think it's gas", helped after I had BM no cp no fever no sob no n/v eating okay Review of Systems Constitutional Constitutional Remarks 12 point ROS completed,. negative except as noted above Vitals/Results Intake & Output 09/08/16 09/08/16 09/09/16 15:00 23:00 07:00 Intake Total 720 ml 220 ml Output Total 450 ml 500 ml Balance 270 ml -280 ml Intake Oral 720 ml 220 ml Output Urine Total 450 ml 500 ml # Voids 2 # Bowel Movements 0 Vital Signs Vital Signs Date Time Temp Pulse Resp B/P Pulse Ox O2 Delivery O2 Flow Rate FiO2 09/09/16 08:00 98.2 74 18 134/93 99 09/09/16 04:39 16 09/09/16 04:00 98.5 91 18 118/83 99 09/09/16 00:00 97.1 92 18 129/87 99 09/08/16 22:38 97.2 82 16 130/87 99 09/08/16 22:30 16 09/08/16 16:00 98.0 78 16 135/81 99 CBC/BMP: 09/08/16 0711 09/08/16 0711 Lab Results Laboratory Tests Test 09/09/16 08:05 Total Bilirubin 1.3 MG/DL Direct Bilirubin 0.3 MG/DL Indirect Bilirubin 1.0 MG/DL Aspartate Amino Transf 151 U/L (AST/SGOT) Alanine Aminotransferase 192 U/L (ALT/SGPT) Alkaline Phosphatase 136 U/L Total Protein 6.6 GM/DL Albumin 3.3 GM/DL Physical Exam General General Appearance: Well Developed, No Acute Distress, Comfortable Eyes Eye Exam: Pupils Equal, Pupils Reactive Ears & Nose Ears & Nose Exam: Nasal Mucosa [place] Throat Throat Exam: Oral Mucosa [place] & Moist Neck Neck Exam: Neck Supple, Trachea Midline Pulmonary Resp Exam: Clear Bilaterally, No Distress Cardiology CV Exam: Regular, Good Perfusion Gastrointestinal/Abdomen GI Exam: Soft, Bowel Sounds Present, Non-Distended Musculoskeletal MS Exam: Joints Intact Integumentary Skin Exam: Warm, Dry Neurologic Neuro Exam: Alert, Awake, Oriented, Speech Clear, Moving All Extremities, No Focal Deficits Psychiatric Psych Exam: Appropriate Responses VTE Prophylaxis VTE Prophylaxis Device: SCDs Assessment/Plan Assessment/Plan 1. Lactic acid sepsis with possible cholangitis. 2. Pneumobilia. 3. Acute renal insufficiency with dehydration and nausea and vomiting. 4. Leukocytosis secondary to sepsis. 5. Diabetes mellitus type 1 with hyperglycemia. 6. Hyponatremia, mild. 7. Mildly elevated LFTs, PLAN appreciate GI input, work up in progress for viral and autoimmune markers, Ceruloplasmin and to consider ruling out CMV and EBV LFTs trending down MRCP neg for ductal dilatation, choledocholithiasis, continue antibiotics for now GB US pneumobilia having some LLQ pain, tolerating diet well. c/o constipation, MOM PRN added continue pain management Type I DM continue with Accu-Cheks a.c. and h.s. with sliding scale insulin DVT prophylaxis with heparin. PUD prophylaxis. continue to follow CMP in am D/W RN D/W Dr. Hammond D/W pt. This patient was seen by myself and Dr. Hammond, this note is written on her behalf Lisa Rivera Sep 09, 2016 13:49
[2016-09-09] MEDS: oxyCODONE/ACETAMINOPHEN 5 MG/325 MG TAB PO PRN ×2 (15:28→21:51)
[2016-09-09 16:00] VITALS: BP 119/83; PULSE 83; RESP 18; TEMP 98.1; O2SAT 100
[2016-09-09 20:00] VITALS: BP 127/86; PULSE 82; RESP 16; TEMP 98.2; O2SAT 98
[2016-09-10] VITALS: BP 120/78; PULSE 79; RESP 17; TEMP 97.3; O2SAT 100
[2016-09-10] MEDS: oxyCODONE/ACETAMINOPHEN 5 MG/325 MG TAB PO PRN ×2 (03:07→09:06)
[2016-09-10] MEDS: PIPERACIL-TAZO 3.375 GM PREMIX 50 ML IV SCH ×2 (03:07→07:46)
[2016-09-10 04:00] VITALS: BP 118/76; PULSE 76; RESP 16; TEMP 98.1; O2SAT 99
[2016-09-10 06:16] LABS: ANION GAP 8 MEQ/L (5-15); AST (GOT) 62 U/L (15-37); BICARBONATE 25.9 MEQ/L (21.0-32.0); BLOOD UREA NITROGEN 8 MG/DL (7-18); CHLORIDE 101 MEQ/L (98-107); GLOMERULAR FILTRATION RATE 154 ML/MIN (>89); POTASSIUM 3.9 MEQ/L (3.5-5.1); SODIUM (NA) 135 MEQ/L (136-145)
[2016-09-10 06:17] LABS: ALT (GPT) 136 U/L (12-78)
[2016-09-10 06:19] LABS: ALKALINE PHOSPHATASE 138 U/L (45-117); TOTAL BILIRUBIN ADULT 0.9 MG/DL (0.2-1.0)
[2016-09-10] MEDS: SODIUM CHLOR 0.9% 1000 ML INJ 1,000 ML IV SCH (07:40)
[2016-09-10] MEDS: INSULIN NovoLIN REGULAR SUPPLEMENTAL SCALE SQ SCH ×3 (07:45→13:46)
[2016-09-10] MEDS: SODIUM CHLORIDE 0.9% FLUSH 10 ML FLUSH IV FLUSH SCH (07:48)
[2016-09-10 08:00] VITALS: BP 130/85; PULSE 65; RESP 20; TEMP 97.3; O2SAT 100
--- NOTE | 2016-09-10 10:38 | HHI.GIFU ---
Subjective Remarks Patient is resting in bed, stats he is perfectly fine today, no nausea, no vomiting, no abdomen pain. states he is ready to go home. (MashaMayankzenymarj CORRAL) Objective Vitals I&O Vital Signs Date Time Temp Pulse Resp B/P Pulse Ox O2 Delivery O2 Flow Rate FiO2 09/10/16 08:00 97.3 65 20 130/85 100 09/10/16 04:13 16 09/10/16 04:00 98.1 76 16 118/76 99 09/10/16 00:00 97.3 79 17 120/78 100 09/09/16 20:00 98.2 82 16 127/86 98 09/09/16 16:00 98.1 83 18 119/83 100 09/09/16 12:00 97.6 85 18 115/77 99 I/O 09/09/16 09/09/16 09/09/16 09/10/16 09/10/16 09/10/16 07:00 15:00 23:00 07:00 15:00 23:00 Intake Total 220 ml 2090 ml 720 ml Output Total 500 ml Balance -280 ml 2090 ml 720 ml Intake Oral 220 ml 2040 ml 720 ml IV Total 50 ml Output Urine Total 500 ml # Voids 8 3 # Bowel Movements 0 Laboratory Laboratory Tests Test 09/10/16 05:30 Sodium Level 135 Potassium Level 3.9 Chloride Level 101 Carbon Dioxide Level 25.9 Anion Gap 8 Blood Urea Nitrogen 8 Creatinine 0.76 Estimat Glomerular Filtration 154 Rate Random Glucose 313 Calcium Level 8.1 Total Bilirubin 0.9 Aspartate Amino Transf 62 (AST/SGOT) Alanine Aminotransferase 136 (ALT/SGPT) Alkaline Phosphatase 138 Total Protein 6.5 Albumin 3.0 Date/Time Procedure Status Source Growth 09/06/16 20:25 Aerobic Blood Culture - Preliminary Resulted Blood Peripheral NO GROWTH IN 3 DAYS 09/06/16 20:25 Anaerobic Blood Culture - Preliminary Resulted Blood Peripheral NO GROWTH IN 3 DAYS Imaging Last Impressions Cholangiopancreatography MRI 09/07/16 0000 Signed Impressions: Service Date/Time: Wednesday, September 07, 2016 19:21 - CONCLUSION: 1. Pneumobilia better appreciated on the prior CT. 2. No biliary dilatation or choledocholithiasis. Lm Gomez Jr., MD Gall Bladder Ultrasound 09/06/16 2306 Signed Impressions: Service Date/Time: Wednesday, September 07, 2016 00:04 - CONCLUSION: Pneumobilia. Gallbladder is unremarkable. Ryland Morales MD Abdomen/Pelvis CT 09/06/16 1936 Signed Impressions: Service Date/Time: Tuesday, September 06, 2016 22:43 - CONCLUSION: Pneumobilia. If there has not been instrumentation of the biliary tree, this could relate to passage of a stone, bowel obstruction or cholangitis. Mild nonspecific fluid and gaseous distention of small bowel. Ryland Morales MD Chest X-Ray 09/06/16 1910 Signed Impressions: Service Date/Time: Tuesday, September 06, 2016 19:31 - CONCLUSION: 1. Gas distended stomach. Otherwise, unremarkable exam. Lm Gomez Jr., MD Abdomen X-Ray 09/06/16 0000 Signed Impressions: Service Date/Time: Tuesday, September 06, 2016 19:35 - CONCLUSION: Normal examination. Lm Gomez Jr., MD Physical Exam HEENT: ; normocephalic; atraumatic; no jaundice. CHEST: CTA CARDIAC: RRR ABDOMEN: Soft, nondistended, mild TTP epigastrum, LLQ; bowel sounds are present in all four quadrants. EXTREMITIES: No clubbing, cyanosis, or edema. SKIN: Normal; no rash; no jaundice. TRANSPORTATION PLANNING TECHNICIAN: No focal deficits; alert and oriented times three. (Katerin Flanagan PAY STATION DEPARTMENT MANAGER) Assessment and Plan Plan ASSESSMENT - abdominal pain - with bloating, nausea. Improved. States he is perfectly fine today, no complaints Gall Bladder US 09/06/16 ---> Pneumobilia. Gallbladder is unremarkable. Abdomen/Pelvis CT 09/06/16 ---> Pneumobilia. If there has not been instrumentation of the biliary tree, this could relate to passage of a stone, bowel obstruction or cholangitis. Mild nonspecific fluid and gaseous distention of small bowel. MRCP neg for ductal dilatation, choledocholithiasis. - elevated LFTs - Marked improvement today, hepatitis panel negative, SUZANNE (-), AMA Pending, ASMA (-), Ceruloplasmin pending, alph-1 antitrypsin 164, % saturation 7.7, ferritin 951 - leukocytosis - Resolved PLAN - EDWIGE - Await rest of labs - If cont. to improve, ok to dc home and f/u with GI in 2 weeks - monitor labs - supportive care - further recommendations to follow based on results above This pt seen by myself and Dr Pagan and this note is written on his behalf ( Katerin Flanagan) Physician Comments Seen and examined, stable from GI point of view, please notify us if needed again. (Donnie Pagan MD) Katerin Flanagan Sep 10, 2016 10:37 Donnie Pagan MD Sep 10, 2016 11:29
[2016-09-10] MEDS: HEPARIN SODIUM - SQ 10,000 UNITS/ML VIAL SQ SCH (11:42)
--- NOTE | 2016-09-10 11:50 | HHI.DCPOC ---
Discharge Care Plan Diagnosis: (1) Nausea & vomiting (2) Dehydration (3) Acute renal insufficiency (4) Sepsis (5) Pneumobilia Your Health Problems Are: Irregular Bowel Function Goals to Promote Your Health * To prevent worsening of your condition and complications * To maintain your health at the optimal level Directions to Meet Your Goals Take your medications as prescribed Follow your dietary instruction Follow activity as directed Keep your appointments as scheduled Take your immunizations and boosters as scheduled If your symptoms worsen call your PCP, if no PCP go to Urgent Care Center or Emergency Room Smoking is Dangerous to Your Health. Avoid second hand smoke Call the 24-hour hour crisis hotline for domestic abuse at Lisa Rivera. [facility] Sep 10, 2016 11:50
--- NOTE | 2016-09-10 11:52 | HHI.DS ---
Discharge Summary Admission Date September 06, 2016 at 22:39 Discharge Date: Sep 10, 2016 Admitting Diagnosis sepsis, acute renal insufficiency, dehydration (1) Sepsis (2) Dehydration (3) Acute renal insufficiency (4) Nausea & vomiting (5) Pneumobilia CBC/BMP: 09/08/16 0711 09/10/16 0530 Significant Findings Laboratory Tests Test 09/07/16 09/08/16 09/08/16 09/09/16 14:48 07:11 12:08 08:05 Hemoglobin 11.8 GM/DL 12.0 GM/DL (13.0-17.0) (13.0-17.0) Hematocrit 36.3 % 35.6 % (39.0-51.0) (39.0-51.0) Mean Corpuscular Volume 74.8 FL 73.0 FL (80.0-100.0) (80.0-100.0) Mean Corpuscular Hemoglobin 24.3 PG 24.7 PG (27.0-34.0) (27.0-34.0) Random Glucose 134 MG/DL 217 MG/DL (74-106) (74-106) Neutrophils (%) (Auto) 74.5 % (16.0-70.0) Monocytes (%) (Auto) 8.4 % (0.0-8.0) Sodium Level 135 MEQ/L (136-145) Total Bilirubin 1.1 MG/DL 1.3 MG/DL (0.2-1.0) (0.2-1.0) Aspartate Amino Transf 297 U/L (15-37) 151 U/L (15-37) (AST/SGOT) Alanine Aminotransferase 205 U/L (12-78) 192 U/L (12-78) (ALT/SGPT) Troponin I LESS THAN 0.02 NG/ML (0.02-0.05) Albumin 3.3 GM/DL 3.3 GM/DL (3.4-5.0) (3.4-5.0) Iron Level 24 MCG/DL (65-175) Percent Iron Saturation 7.7 % (20-50) Ferritin 951 NG/ML (26-388) Direct Bilirubin 0.3 MG/DL (0.0-0.2) Indirect Bilirubin 1.0 MG/DL (0.0-0.8) Alkaline Phosphatase 136 U/L (45-117) Test 09/10/16 05:30 Sodium Level 135 MEQ/L (136-145) Random Glucose 313 MG/DL (74-106) Calcium Level 8.1 MG/DL (8.5-10.1) Aspartate Amino Transf 62 U/L (15-37) (AST/SGOT) Alanine Aminotransferase 136 U/L (12-78) (ALT/SGPT) Alkaline Phosphatase 138 U/L (45-117) Albumin 3.0 GM/DL (3.4-5.0) Imaging Last Impressions Cholangiopancreatography MRI 09/07/16 0000 Signed Impressions: Service Date/Time: Wednesday, September 07, 2016 19:21 - CONCLUSION: 1. Pneumobilia better appreciated on the prior CT. 2. No biliary dilatation or choledocholithiasis. Lm Gomez Jr., MD Gall Bladder Ultrasound 09/06/16 2306 Signed Impressions: Service Date/Time: Wednesday, September 07, 2016 00:04 - CONCLUSION: Pneumobilia. Gallbladder is unremarkable. Ryland Morales MD Abdomen/Pelvis CT 09/06/16 1936 Signed Impressions: Service Date/Time: Tuesday, September 06, 2016 22:43 - CONCLUSION: Pneumobilia. If there has not been instrumentation of the biliary tree, this could relate to passage of a stone, bowel obstruction or cholangitis. Mild nonspecific fluid and gaseous distention of small bowel. Ryland Morales MD Chest X-Ray 09/06/16 1910 Signed Impressions: Service Date/Time: Tuesday, September 06, 2016 19:31 - CONCLUSION: 1. Gas distended stomach. Otherwise, unremarkable exam. Lm Gomez Jr., MD Abdomen X-Ray 09/06/16 0000 Signed Impressions: Service Date/Time: Tuesday, September 06, 2016 19:35 - CONCLUSION: Normal examination. Lm Gomez Jr., MD Hospital Course This is a pleasant 21-year-old diabetic male who has been in his usual state of health up until the patient went to [employer] and ate his supper and stated that he was at home watching TV when he first noticed abdominal pain. He described this pain as a generalized sensation that did radiate up into his epigastric region, but predominantly at this time is more in the left upper and left lower quadrant. The patient noted that he did have some nausea and vomiting, that he did not notice any blood or any bile. 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 He does keep his blood sugars under control and he is not on an insulin pump. The patient does go to school full-time and work a full-time job, stays very busy. He has not had any abdominal pain before this past evening. The patient did note some mild lightheadedness a couple of times during the daytime, but contributed it to be hot outside in the sun. The patient denies any chest pain, no shortness of breath, no headaches, no weight gain or weight loss recently. He voids freely. Denies any problems with bowel movements. Sugars have been under control to his knowledge. The patient was off from work yesterday but states that he did not do any activities that were out of the ordinary. Was admitted, evaluated in emergency room and laboratory workup was completed. LABORATORY WBC count 21.2, RBC 6.51, hemoglobin 15.7, hematocrit 49.2, MCV 75.5, MCH 24.1, MCHC 31.8. Neutrophil percentage auto count is 71. INR is 0.9. Sodium 134, potassium 4.4, chloride 95, carbon dioxide 23.8, anion gap 15, BUN 25, creatinine 2.05, GFR 49, random glucose 285, lactic acid 3.3, calcium 11.5, magnesium 2.8, bilirubin 1, AST 49, ALT 46, alkaline phosphatase 132. Troponin is less than 0.02, total protein 9.5, albumin 5.1, lipase 102. Urine shows yellow clear urine, pH 5, specific gravity 0.015, negative protein, occult blood, nitrites, bilirubin and leukocyte esterase, trace ketones. Blood glucose is elevated. Toxicology is positive for cannabis, otherwise negative exam. B-hydroxybutyrate is 0.28. IMAGING Abdominal x-ray is normal. Chest x-ray has gas distention in the stomach, otherwise normal. Abdomen and pelvis CT shows pneumobilia. This could relate to passage of a stone, bowel obstruction or cholangitis, mild nonspecific fluid and gaseous distention of the small bowel. Gallbladder ultrasound shows an unremarkable gallbladder with pneumobilia. Patient was admitted with: 1. Lactic acid sepsis with possible cholangitis. 2. Pneumobilia. 3. Acute renal insufficiency with dehydration and nausea and vomiting. 4. Leukocytosis secondary to sepsis. 5. Diabetes mellitus type 1 with hyperglycemia. 6. Hyponatremia, mild. 7. Mildly elevated LFTs, During the course of the hospitalization, the following took place: put on antibiotics. GI consulted. Further imaging studies ordered. GB US pneumobilia MRCP neg for ductal dilatation, choledocholithiasis, appreciate GI input, work up in progress for viral and autoimmune markers, Ceruloplasmin and to consider ruling out CMV and EBV -pending, needed to f/u as OP with GI-discussed with pt. at length LFTs followed, started going up, then started to improve Abd. pain improved, tolerated diet, had BM. No n/v cultures negative. WBC and lactic acid normalized Antibiotics stopped Hx of Type I DM continued with Accu-Cheks a.c. and h.s. with sliding scale insulin DVT prophylaxis with heparin. PUD prophylaxis. Pt. improved, tolerated diet, LFTs down had no more pain cleared by GI Discharged home Instructed to: F/U GI in 2 weeks Diet-diabetic Activity-as tolerated Informed to avoid tylenol products Pt Condition on Discharge: Stable Discharge Disposition: Discharge Home Discharge Instructions DIET: Follow Instructions for: Heart Healthy Diet, Diabetic Diet Activities you can perform: Weight Bearing as Eric Follow up Referrals: Gastroenterology - 2 Weeks with Hiral Jain MD PCP Follow-up Continued Medications: Insulin Glargine Inj (Lantus Inj) 1,000 Unit/10 Ml Vial 36 UNITS SQ HS Blood Sugar Management Ref 0 VIAL Insulin Glargine Inj (Lantus Inj) 1,000 Unit/10 Ml Vial 34 UNITS SQ AC BREAKFAST Blood Sugar Management Ref 0 VIAL Insulin Human Regular Inj (Novolin R Inj) 1,000 Unit/10 Ml Vial 0 SQ DIRECTED Sliding Scale As Directed. Blood Sugar Management #10 Ref 0 ML Ondansetron Odt (Zofran Odt) 4 Mg Tab 4 MG SL Q6HR PRN Nausea/Vomiting #30 Ref 0 TAB Lisa Rivera Sep 10, 2016 11:52
--- NOTE | 2016-09-10 11:56 | HHI.PR ---
Subjective Subjective Remarks having bm, regular no n/v tolerating diet no abd. pain has occ. back pain, would like at least 2 days worth believes his elevation in liver enzymes were due to gas, discussed need to f/u with GI for work up results. Review of Systems Constitutional Constitutional Remarks 12 point ROS completed,. negative except as noted above Vitals/Results Intake & Output 09/09/16 09/09/16 09/10/16 15:00 23:00 07:00 Intake Total 2090 ml 720 ml Balance 2090 ml 720 ml Intake Oral 2040 ml 720 ml IV Total 50 ml # Voids 8 3 Vital Signs Vital Signs Date Time Temp Pulse Resp B/P Pulse Ox O2 Delivery O2 Flow Rate FiO2 09/10/16 08:00 97.3 65 20 130/85 100 09/10/16 04:13 16 09/10/16 04:00 98.1 76 16 118/76 99 09/10/16 00:00 97.3 79 17 120/78 100 09/09/16 20:00 98.2 82 16 127/86 98 09/09/16 16:00 98.1 83 18 119/83 100 09/09/16 12:00 97.6 85 18 115/77 99 CBC/BMP: 09/08/16 0711 09/10/16 0530 Lab Results Laboratory Tests Test 09/10/16 05:30 Sodium Level 135 MEQ/L Potassium Level 3.9 MEQ/L Chloride Level 101 MEQ/L Carbon Dioxide Level 25.9 MEQ/L Anion Gap 8 MEQ/L Blood Urea Nitrogen 8 MG/DL Creatinine 0.76 MG/DL Estimat Glomerular Filtration 154 ML/MIN Rate Random Glucose 313 MG/DL Calcium Level 8.1 MG/DL Total Bilirubin 0.9 MG/DL Aspartate Amino Transf 62 U/L (AST/SGOT) Alanine Aminotransferase 136 U/L (ALT/SGPT) Alkaline Phosphatase 138 U/L Total Protein 6.5 GM/DL Albumin 3.0 GM/DL Physical Exam General General Appearance: Well Developed, No Acute Distress, Comfortable Eyes Eye Exam: Pupils Equal, Pupils Reactive Ears & Nose Ears & Nose Exam: Nasal Mucosa Aucilla Throat Throat Exam: Oral Mucosa Aucilla & Moist Neck Neck Exam: Neck Supple, Trachea Midline Pulmonary Resp Exam: Clear Bilaterally, No Distress Cardiology CV Exam: Regular, Good Perfusion Gastrointestinal/Abdomen GI Exam: Soft, Bowel Sounds Present, Non-Distended Musculoskeletal MS Exam: Joints Intact Integumentary Skin Exam: Warm, Dry Neurologic Neuro Exam: Alert, Awake, Oriented, Speech Clear, Moving All Extremities, No Focal Deficits Psychiatric Psych Exam: Appropriate Responses VTE Prophylaxis VTE Prophylaxis Device: SCDs Assessment/Plan Assessment/Plan 1. Lactic acid sepsis with possible cholangitis. 2. Pneumobilia. 3. Acute renal insufficiency with dehydration and nausea and vomiting. 4. Leukocytosis secondary to sepsis. 5. Diabetes mellitus type 1 with hyperglycemia. 6. Hyponatremia, mild. 7. Mildly elevated LFTs, PLAN appreciate GI input, work up in progress for viral and autoimmune markers, Ceruloplasmin and to consider ruling out CMV and EBV -pending, needs to f/u as OP with GI MRCP neg for ductal dilatation, choledocholithiasis, received abx, d/c. Cultures negative GB US pneumobilia improved, no pain, tolerated diet, no n/v LFTs trending down clear for discharge. Type I DM continue with Accu-Cheks a.c. and h.s. with sliding scale insulin DVT prophylaxis with heparin. PUD prophylaxis. improved, tolerating diet, LFTs down cleared by GI Discharge home F/U GI in 2 weeks Diet-diabetic Activity-as tolerated Informed to avoid tylenol products D/W RN D/W Dr. Hammond D/W pt. This patient was seen by myself and Dr. Hammond, this note is written on her behalf Discharge Minutes: 40 Lisa Rivera Sep 10, 2016 11:55
[2016-09-10 12:00] VITALS: BP 152/95; PULSE 85; RESP 20; TEMP 97.3; O2SAT 100
[2016-09-11 23:51] LABS: MITOCHONDRIAL ABS LESS THAN 20.0 U (())
== END 2016-09-10 15:55 | disposition home or self-care (01) | DRG 872 ==
LOC: NEPE 17:30 → NEDA 22:39 → HOCB 09-07 01:29
PROVIDERS: ADMIT Internal Medicine; ATTEND Internal Medicine
DX: A41.9 Sepsis, unspecified organism (principal); K83.0 Cholangitis; N17.9 Acute kidney failure, unspecified; E87.2 Acidosis; E87.1 Hypo-osmolality and hyponatremia; E10.65 Type 1 diabetes mellitus with hyperglycemia; K21.9 Gastro-esophageal reflux disease without esophagitis; E86.0 Dehydration; R79.89 Other specified abnormal findings of blood chemistry; F17.210 Nicotine dependence, cigarettes, uncomplicated; F12.10 Cannabis abuse, uncomplicated; Z79.4 Long term (current) use of insulin; Z88.1 Allergy status to other antibiotic agents
CPT/HCPCS: 71010; 74020; 74176; 74181; 76377; 76705; 80048; 80053; 80074; 80076; 80307; 81001; 82010; 82103; 82390; 82728; 82948; 83520; 83540; 83550; 83605; 83690; 83735; 84484; 85025; 85027; 85610; 85730; 86038; 86256; 87040; 93005; 96372; 96374; 96375; J1200; J1644; J1815; J2270; J2405; J2543; J3370; J7030; J7050; Q9963